=== PATIENT | female | born 1960 | race Caucasian/White ===

== ENCOUNTER 2019-10-24 11:30 | Outpatient (AMBR) | payer MEDICAID, SELFPAY ==
--- NOTE | 2019-10-17 16:07 | PTNOTE_ITS ---
PT OP Initial Eval Patient Information Visit Reasons: parkinsons disease Medical Diagnosis: Parkinson Disease Treatment Dx #1: Balance Deficits Treatment Dx #2: Abnormal Gait Start of Care: 10/17/19 Date of Onset: 1 year ago Initial Assessment Subjective Pt is a 59 y/o female with a medical history of Parkinson recently diagnosed and currently on medication. Since 1 year ago Pt has notice balance deficits, difficulty walking, and lack of coordination. Pt now has limitation with getting in/out of car, prolonged standing, recreational activities, and performing chores within the house. Pt has fallen once ~ 2 months ago where she loss her ba adelina Objective BUE AROM: all motions are WFL BUE MMTs: gorssly 3/5 BLE AROM: all motions are WFL BLE MMTs: grossly 3+/5 Modified CTSIB (condition 2- feet narrow): 5 sec with increase body sway (+) Dysdiadochokinesia Assessment Pt demonstrate decrease balance, coordination and difficulty with gait secondary to parkinson disease leading to decline function. Pt will benefit from physical therapy to increase mobility, strength, and work on balance Short Term and Subway Operator Goals 1) Increase BUE MMTs grossly to 4-/5 in 8 wks to be able to perform chores 2) Increase BLE MMTs grossly to 4-/5 in 8 wks to be able to ambulate more than 1 hr with AD 3) Increase modified CTSIB to 20 sec in 8 wks to prevent future falls 4) Teach proper gait apparatus repair mechanic using AD for safe ambulation in 8 wks 5) Indep with HEP Treatment Plan 1) Manual Therapy 2) Therapeutic Activities 3) Therapeutic Exercises 4) Gait Training 5) Balance Training Frequency and Duration 2 x wk for 8 wks Certification Dates: 10/17/19 to 01/15/20 Office Procedures PT Procedures PT Date of Service: 10/17/19 OP PT Eval Mod Complex 30 minutes: Yes
--- NOTE | 2019-10-22 14:16 | PT.ODAYNRPT ---
PT Outpatient Daily Note Date of Service: October 22, 2019 OP Daily Note Visit Reasons: parkinsons disease Outpatient Physical Therapy Treatment Date: 10/22/19 Subjective: Pt is doing okay. she tries not to do hard tasks at home. Objective: Please see flow chart for list of ther ex performed Assessment: cues to increase step length with backward exercises and all dynamic exercises in PB. Pt was fatigue at the end of PT session Plan: Continue with PT Length of Time (minutes) of Treatment: 30 Minutes Office Procedures PT Procedures PT Date of Service: 10/17/19 OP PT Eval Mod Complex 30 minutes: Yes PT Procedures PT Date of Service: 10/22/19 Therapeutic Exercise 30 minutes: Yes
--- NOTE | 2019-10-24 12:04 | PT.ODAYNRPT ---
PT Outpatient Daily Note Date of Service: October 24, 2019 OP Daily Note Visit Reasons: parkinsons disease Outpatient Physical Therapy Treatment Date: 10/24/19 Subjective: Pt mention that she was really tired after last treatment session. Pt slept for a few hrs. Objective: Please see flow chart for list of ther ex performed Assessment: tolerate exercises; slight increase fatigue with sci fit towards the end; Pt did sci-fit towards the end of PT session Plan: Continue with PT Length of Time (minutes) of Treatment: 30 Minutes Office Procedures PT Procedures PT Date of Service: 10/17/19 OP PT Eval Mod Complex 30 minutes: Yes PT Procedures PT Date of Service: 10/24/19 Therapeutic Exercise 30 minutes: Yes PT Procedures PT Date of Service: 10/22/19 Therapeutic Exercise 30 minutes: Yes
== END 2019-10-26 23:59 | disposition home or self-care (01) ==
PROVIDERS: Visit Provider Psychiatry & Neurology Neurology
DX: G20 Parkinson's disease (principal); R26.2 Difficulty in walking, not elsewhere classified
CPT/HCPCS: 97110; 97162

== ENCOUNTER → 2024-07-22 | Outpatient (CLI) | payer MEDICARE, MEDICAID, SELFPAY ==
--- NOTE | 2024-07-22 15:15 | XR_ITS ---
Examination: Breast ultrasound complete, bilateral Date and time of exam: July 22, 2024 1623 hours INDICATIONS: Limited mammogram secondary to Parkinson's disease Technique: Real-time grayscale ultrasonographic imaging bilateral breasts, including all 4 quadrants as well as nipple retroareolar and axillary regions. Findings: Sonographic images right and left breast demonstrated no cystic or solid masses Dilated ducts in the retroareolar regions bilaterally IMPRESSION: BI-RADS Category 2: Benign findings
== END | disposition home or self-care (01) ==
PROVIDERS: PCP Nurse Practitioner Family; Referring Provider Nurse Practitioner Family; Visit Provider Nurse Practitioner Family
DX: R92.0 Mammographic microcalcification found on diagnostic imaging of breast (principal)
CPT/HCPCS: 76641

== ENCOUNTER 2025-01-09 12:01 | Emergency (ER) | payer MEDICARE, MEDICAID, SELFPAY ==
[2025-01-09 12:01] VITALS: BMI 24.7
[2025-01-09 12:27] VITALS: BP 97/60; PULSE 79; RESP 18; TEMP 36.8; O2SAT 96
--- NOTE | 2025-01-09 12:30 | XR_ITS ---
Examination: Lumbar spine 3 views Technique one AP lateral coned lateral lower lumbar spine 3 views Date and time: January 09, 2025 1312 hours INDICATIONS: Patient fell today with injury to lower back, lower back pain. FINDINGS: Prominent osteopenia No acute lumbar fracture No spondylolisthesis IMPRESSION: No acute lumbar fracture
--- NOTE | 2025-01-09 12:30 | XR_ITS ---
Examination: Cervical spine 4 views TECHNIQUE: AP, lateral, swimmer's lateral, AP odontoid 4 views Date and time: January 09, 2025 1255 hours INDICATIONS: Patient fell today with into the neck, neck pain. FINDINGS: Prominent osteopenia No acute cervical fracture Advanced disc narrowing C6-C7 Intact odontoid IMPRESSION: No cervical fracture Visualization of C7 is limited
--- NOTE | 2025-01-09 12:30 | XR_ITS ---
Examination: Thoracic spine 3 views Technique one AP lateral coned lateral upper dorsal spine 3 views Date and time: January 09, 2025 1304 hours INDICATIONS: Patient fell today with injury to the back, upper back pain. FINDINGS: Prominent osteopenia No acute thoracic fracture Mild to moderate diffuse thoracic disc narrowing IMPRESSION: No acute thoracic fracture
--- NOTE | 2025-01-09 12:30 | XR_ITS ---
Examination: AP lateral chest 2 views TECHNIQUE: Portable upright AP lateral chest 2 views Date and time: January 09, 2025 1301 hours Comparison November 15, 2023 INDICATIONS: Patient fell today with injury to the chest, chest pain FINDINGS: Scarring at the left base again noted Normal heart size No pneumothorax Prominent osteopenia Ribs clavicles and thoracic vertebral bodies appear intact IMPRESSION: No pneumothorax or pulmonary contusion
--- NOTE | 2025-01-09 12:30 | XR_ITS ---
Examination:Right hip AP, lateral, AP pelvis 3 views Technique: Hip AP lateral, AP pelvis, 3 views Exam date and time:January 09, 2025 1251 hours INDICATIONS: Patient fell today with into the right hip, right hip pain. FINDINGS: Old healed right hip fracture No acute fracture Intramedullary goran satisfactory position Femoral shaft intact IMPRESSION: No acute hip or pelvic fracture.
--- NOTE | 2025-01-09 12:32 | EDNOTE_ITS ---
ED Fall Injury RME/HPI General Chief Complaint: Fall Stated Complaint: FALL AT HOME ATTEMPTING TO GET OFF TOILET, Time Seen by Provider: 01/09/25 12:26 Arrival date/time: 01/09/25 12:01 RME / HPI RME / HPI Narrative: 65-year-old female patient with significant history of Parkinson disease, was brought in by her sister for evaluation regarding fall. Patient is trying to get off the toilet yesterday and patient fell and landed on her buttock. Patient is complaining of right hip pain, low back pain and neck pain. Patient told me that she did not hit her head no LOC no nausea no vomiting. No medications taken prior to arrival. Related Data Home Medications ?Medication ?Instructions ?Recorded ?Confirmed FLUTICASONE/SALMETEROL (ADVAIR 1 puff inhalation BID # #60 02/26/15 250/50 DISKUS) Losartan Potassium * (COZAAR *) 50 mg PO QDAY ##30 10/12 Metformin Hcl 500 mg PO QDAY ##60 02/26/15 TIOTROPIUM BROMIDE (SPIRIVA 18 MCG) 1 puff inhalation QDAY ##30 02/26/15 ciprofloxacin HCl 500 mg tablet 500 mg PO BID #7 tabs 04/08/15 Previous Rx's ?Medication ?Instructions ?Recorded Hydrocodone/Acetaminophen * (NORCO 1 tab PO Q6H PRN PA IN #30 tabs 04/07/15 7.5/325 *) Hydrocodone/Acetaminophen * (NORCO 1 tab PO Q4H PRN PA IN #20 tabs 04/27/15 5/325 *) Allergies Allergy/AdvReac Type Severity Reaction Status Date / Time NKA* Allergy Uncoded 01/09/25 12:05 Review of Systems Review of Systems Narrative Review of Systems: Review of system reviewed and within normal limits except mentioned in HPI ED Exam Narrative Physical exam: VITAL SIGNS: Reviewed. GENERAL APPEARANCE: Alert and interactive, follows commands, no acute distress, HEAD AND FACE: Non-traumatic. ENT: PERRL, pink conjunctivitis, eyelid no trauma, Mucous membrane moist. NECK: Supple, posterior neck tenderness, no nuchal rigidity. CHEST: No tenderness, no crepitus, no paradoxical movement, no retractions. LUNGS: Clear, well ventilated, symmetric, no rales, no wheezing, no ronchi, no stridor, good breath sounds bilaterally. HEART: Regular rate, regular rhythm, no murmur, no gallops. ABDOMEN: Soft, positive bowel sounds, nondistended, no guarding, nontender, no rebound, no masses, RECTAL: Deferred. GENITAL: Deferred. NEUROLOGICAL: Gross motor function intact sensory function intact, Appropriate for age. MUSCULOSKELETAL: low back tenderness, full range of motion. EXTREMITIES: Right hip tenderness, with limitation range of motion. No deformity noted no swelling noted SKIN: Color pink, dry, no rash, no lacerations, no abrasions, no contusions. LYMPHATICS: Deferred. Course Quality Measures none Orders Category Date Time Status XR cervical spine 2-3V Stat Exams 01/09/25 12:30 Completed XR chest 2V Stat Exams 01/09/25 12:30 Completed XR hip RT w pelvis 2-3V Stat Exams 01/09/25 12:30 Completed XR lumbar spine 2-3V Stat Exams 01/09/25 12:30 Completed XR thoracic spine 3V Stat Exams 01/09/25 12:30 Completed HYDROcodone*/APAP 5/325 [[place] 5/325] Med 01/09/25 12:30 Discontinued 1 tab PO X1 ONE Vital Signs Vital signs: Vital Signs Temperature 98.2 F 01/09/25 12:27 Pulse Rate 79 01/09/25 12:27 Respiratory Rate 18 01/09/25 12:27 Blood Pressure 97/60 01/09/25 12:27 Pulse Oximetry (%) 96 01/09/25 12:27 Oxygen Delivery Method Room Air 01/09/25 12:27 Fall MDM Narrative MDM Narrative:: 65-year-old female patient with significant history of Parkinson disease, was brought in by her sister for evaluation regarding fall. Patient is trying to get off the toilet yesterday and patient fell and landed on her buttock. Patient is complaining of right hip pain, low back pain and neck pain. Patient told me that she did not hit her head no LOC no nausea no vomiting. No medications taken prior to arrival. X-ray of the cervical spine, x-ray of the hip, x-ray of the lumbar spine x-ray of the thoracic spine chest x-ray all came back unremarkable results discussed with the patient. Patient appears nontoxic and hemodynamically stable. Patient discharged home and instructed to follow-up with primary care provider in 24 to 48 hours. Instructed to return to the emergency department immediately if worsening of symptoms Patient data External records reviewed:: None Clinical information provided by:: patient Social determinants that could affect healthcare access:: none Patient has the following chronic illnesses:: Parkinson How is presenting disease/condition affected by chronic disease/condition?: exacerbated by Evaluation data The following diagnostics were reviewed and interpreted by me:: radiology exam(s) Lab and/or radiology exams considered but not ordered:: None Interpretation Summary: See results MDM Medications / Prescriptions Medications or Prescriptions considered but not ordered:: None Medication administrations:: Medication Administration History Discontinued Medications Hydrocodone Bitart/Acetaminophen (Hydrocodone/Apap 5/325 Tablet) 1 tab PO X1 ONE Stop: 01/09/25 12:31 Last Admin: 01/09/25 13:25 Dose: 1 tab Documented By: CAMI Harris Consultations Consultation(s) initiated? (list below): No Diagnosis Fall Differential Diagnosis: compression fracture and other (Neck pain, low back pain sp fall) Most likely diagnosis given after review of the tests above:: Status post fall, low back pain, neck pain Admission Indicated Admission indicated?: not indicated Admission Request Was there a request for admission?: No Disposition Plan Disposition Plan: Discharge Discharge Attestation Discharge Attestation: The patient and all family members were given an opportunity to ask questions and understood the discharge instructions. Discharge instructions specifically effects, indications for sooner follow up or return to the emergency department, and the expected course of current diagnosis. Patient condition: Stable Discharge Plan Plan Patient Disposition: HOME (Self Care) Discharge Disposition comment: stable Prescriptions/Referrals Prescriptions/Med Rec: No Action FLUTICASONE/SALMETEROL (ADVAIR 250/50 DISKUS) 1 DISK W/DEV DISK.W.DEV 1 puff Inhalation BID Qty: 60 Losartan Potassium * (COZAAR *) 50 MG tablet 50 mg PO QDAY Qty: 30 Metformin Hcl 500 MG tablet 500 mg PO QDAY Qty: 60 TIOTROPIUM BROMIDE (SPIRIVA 18 MCG) 5 CAP/INH CAP.W.DEV 1 puff Inhalation QDAY Qty: 30 Hydrocodone/Acetaminophen * (NORCO 7.5/325 *) 1 TAB tablet 1 tab PO Q6H PRN (Reason: PAIN) Qty: 30 0RF ciprofloxacin HCl 500 MG tablet 500 mg PO BID Qty: 7 Hydrocodone/Acetaminophen * (NORCO 5/325 *) 1 TAB tablet 1 tab PO Q4H PRN (Reason: PAIN) Qty: 20 0RF Referrals: No Primary/Family,Physician [Primary Care Provider] - In 1 week Problem List Clinical Impression: Fall, Neck pain, Back pain Patient/Caregiver Discharge Instructions Discharge Activity: activity as tolerated Education Materials: ED Neck Pain Additional Instructions: Thank you for the opportunity for serving you today. You are stable for discharged . You are advised to: Follow-up with your PCP in 1 to 2 days Return to ED for worsening of symptoms Increase oral fluids Take [id number] Tylenol or Motrin as needed for pain Print Language: Romanian Stand Alone Forms: [employer] Award Info., Patient Portal Info Letter PA/MEASURING MACHINE OPERATOR Supervising Physician CJ/ROYCE Supervising Physician: MD Austin
[2025-01-09] MEDS: HYDROcodone/APAP 5/325 TABLET 1 TAB PO (13:25)
== END 2025-01-09 16:57 | disposition home or self-care (01) ==
PROVIDERS: Emergency Provider Emergency Medicine
DX: M54.50 Low back pain, unspecified (principal); M54.2 Cervicalgia; G20.A1 Parkinson's disease without dyskinesia, without mention of fluctuations; M25.551 Pain in right hip; R07.9 Chest pain, unspecified
CPT/HCPCS: 71046; 72040; 72072; 72100; 73502; 99283; A9270

== ENCOUNTER 2025-01-10 19:07 | Inpatient (IN) | payer MEDICARE, MEDICAID, SELFPAY ==
[2025-01-10 19:10] VITALS: BP 132/72; PULSE 97; RESP 17; TEMP 36.7; O2SAT 92
[2025-01-10 19:27] VITALS: BP 116/62; PULSE 94; RESP 16; TEMP 38.3; O2SAT 97
--- NOTE | 2025-01-10 19:43 | XR_ITS ---
Examination: CT brain head without contrast. 2-D sagittal coronal reconstructions Date and time of exam:January 10, 20252018 hours INDICATIONS: Ground-level fall today with injury to the head, head pain CTDI: vol (mGy):48.8 DLP: (mGycm):924 Technique: Multiple CT axial sections of the brain have been obtained, 5 mm slice thickness. Contrast has not been administered. 2-D sagittal, coronal reconstructions have been obtained Low dose protocols were performed. One or more of the following dose reduction techniques were used; automated exposure control, adjustment of the mA and/or KV according to patient size, use of iterative reconstruction technique. Findings: Patient motion limits scan image quality The ventricles are not enlarged No gross hemorrhage No mass effect Impression: Patient motion limits image quality No gross hemorrhage mass effect or midline shift
--- NOTE | 2025-01-10 19:43 | XR_ITS ---
Examination: CT abdomen and pelvis without contrast. Coronal 3-D reconstructions. Sagittal 2-D reconstructions. Date and time of exam:January 10, 2025 2042 hours INDICATIONS: Ground-level fall today with injury to the abdomen, abdomen pain CTDI: vol (mGy): 12.5 DLP: (mGycm): 714 Technique: Axial images of the abdomen have been obtained, 3 mm slice thickness Intravenous contrast material has not been administered. Low dose protocols were performed. One or more of the following dose reduction techniques were used; automated exposure control, adjustment of the mA and/or KV according to patient size, use of iterative reconstruction technique. Findings: No liver or splenic or renal laceration Cholelithiasis Abdominal aorta is intact No free blood in the abdomen No pericecal inflammatory change Urinary bladder intact Anteverted uterus with a large fundus Prominent osteopenia Acute fractures second sacral segment, sagittal image 142, approximately 203 without significant displacement Acute fracture upper S3 vertebral body, sagittal image 144 No presacral hemorrhage Iliac bones and hips appear intact IMPRESSION: No abdominal parenchymal laceration Abdominal aorta intact, no free blood in the abdomen or pelvis Acute fractures second and third sacral segments without major offset
--- NOTE | 2025-01-10 19:43 | XR_ITS ---
Examination: CT lumbar spine, without contrast. 2-D sagittal reconstructions. 2-D coronal reconstructions. 3-D reconstructions. Date and time of exam: January 10, 20252021 hours INDICATIONS: Abdominal fall today with injury to lower back, lower back pain. CTDI: vol (mGy):30 DLP: (mGycm):2191 Technique: Multiple 1.25 mm axial sections of the lumbar spine have been obtained. 2-D sagittal and coronal reconstructions have been obtained. 3-D reconstructions have been obtained. Low dose protocols were performed. One or more of the following dose reduction techniques were used; automated exposure control, adjustment of the mA and/or KV according to patient size, use of iterative reconstruction technique. Findings: Satisfactory alignment lumbar vertebral bodies No lumbar fracture Lumbar pedicles and laminae and transverse processes appear intact IMPRESSION: No lumbar fracture Please see the CT pelvis report for description of fractures second and third sacral segments
--- NOTE | 2025-01-10 19:59 | EDNOTE_ITS ---
ED Fall Injury RME/HPI General Chief Complaint: Fall Stated Complaint: FALL Time Seen by Provider: 01/10/25 19:48 Arrival date/time: 01/10/25 19:07 RME / HPI RME / HPI Narrative: The patient is a 64-year-old female with significant past medical history of parkinsonism presented to ED by EMS with chief complaint of ground-level fall. The patient was here for fall 1 day back, but again had second episode of fall this afternoon. The caregiver initially helped her to reach to restroom, and after sometimes, her caregiver found her on ground. The patient reported that she hit her head, and her butt on the ground, but did not lose her consciousness. She reported pain over her lumbar region, and over left pelvis region. She denied any headache, lightheadedness, dizziness, sore throat, chest pain, SOB, abdominal pain, any changes in bowel or bladder habit or leg swelling. She denied any nausea or vomiting, fever or chills. Related Data Home Medications ?Medication ?Instructions ?Recorded ?Confirmed FLUTICASONE/SALMETEROL (ADVAIR 1 puff inhalation BID # #60 02/26/15 250/50 DISKUS) Losartan Potassium * (COZAAR *) 50 mg PO QDAY ##30 10/12 Metformin Hcl 500 mg PO QDAY ##60 15 TIOTROPIUM BROMIDE (SPIRIVA 18 MCG) 1 puff inhalation QDAY ##30 02/26/15 ciprofloxacin HCl 500 mg tablet 500 mg PO BID #7 tabs 04/08/15 Previous Rx's ?Medication ?Instructions ?Recorded Hydrocodone/Acetaminophen * (NORCO 1 tab PO Q6H PRN PA IN #30 tabs 04/07/15 7.5/325 *) Hydrocodone/Acetaminophen * (NORCO 1 tab PO Q4H PRN PA IN #20 tabs 04/27/15 5/325 *) Allergies Allergy/AdvReac Type Severity Reaction Status Date / Time No Known Allergies Allergy Unverified 01/10/25 19:49 Review of Systems Review of Systems Systems Reviewed: All systems reviewed, normal except as documented ED Exam Narrative Physical exam: General: Elderly female, cooperative, no acute distress, Alert and Oriented x 3- to person place and date of including year HEENT: Moderately dry mucous membranes, oropharynx clear Neck: Supple, No masses, No JVD CVS: S1S2 Regular rate and rhythm, No murmurs, rubs or gallops Lungs: Clear to auscultation with no accessory use, no wheeze no rhonchi Abd: Soft, NT/ND, +BS, no organomegaly, tenderness over L3-L4 level and left pelvis region Ext: No edema, warm and well perfused Skin: No rash Psych: Appropriate mood and affect Course Quality Measures none Orders Category Date Time Status Apply Trapeze to Bed NOW Care 01/10/25 23:26 Active Bladder Scan Q6H Care 01/10/25 23:23 Active Director Of Retail Operations STAT Care 01/11/25 00:05 Active Continuous Pulse Oximetry STAT Care 01/11/25 00:05 Active EKG (ED ONLY) *Do not use* NOW Care 01/11/25 00:05 Active In and Out Catheter X1 Care 01/10/25 21:29 Active Insert IV NOW Care 01/11/25 00:05 Active Orthostatic Vitals NOW Care 01/10/25 20:26 Active Strict Intake and Output Routine Care 01/11/25 00:05 Ordered Consult to Orthopedic Stat Cons 01/10/25 23:31 Ordered Referral Physical Therapy Stat Cons 01/10/25 23:26 Active Diet Regular Diet 01/10/[address] abdomen pelvis wo con Stat Exams 01/10/25 19:[address] cervical spine wo con Stat Exams 01/10/25 20:[address] head/brain wo con Stat Exams 01/10/25 19:[address] lumbar spine wo con Stat Exams 01/10/25 19:43 Completed CXRP [XR chest 1V portable] Stat Exams 01/10/25 20:29 Completed EKG (ED Only) Stat Exams 01/11/25 00:05 Ordered US gall bladder Stat Exams 01/11/25 00:00 Taken Blood Culture (Lab) Stat Lab 01/11/25 00:24 Received CBC Stat Lab 01/10/25 00:09 Completed CK [Creatine Kinase] Stat Lab 01/10/25 00:09 Completed CMP [Comprehensive Metabolic Panel] Stat Lab 01/10/25 00:09 Completed LDH (Lactate Dehydrogenase) Stat Lab 01/11/25 00:20 Completed Lactate (Lactic Acid) Stat Lab 01/11/25 00:20 Completed Magnesium Stat Lab 01/10/25 00:09 Completed Partial Thromboplastin Time Stat Lab 01/11/25 00:20 Completed Phosphorous Stat Lab 01/10/25 00:09 Completed Procalcitonin Stat Lab 01/11/25 00:20 Completed Prothrombin Time with INR Stat Lab 01/11/25 00:20 Completed Troponin I Stat Lab 01/11/25 00:20 Completed UA [Urinalysis] Stat Lab 01/10/25 21:30 Completed Urine Culture Stat Lab 01/11/25 00:05 Ordered HYDROcodone*/APAP 5/325 [Lockhart 5/325] Med 01/10/25 23:30 Discontinued 1 tab PO Q6H HYDROcodone*/APAP 5/325 [Lockhart 5/325] Med 01/11/25 01:50 Active 1 tab PO Q6HR HYDROcodone*/APAP 5/325 [[place] 5/325] Med 01/10/25 19:47 Discontinued 1 tab PO X1 ONE Morphine Inj Med 01/10/25 23:43 Discontinued 1 mg IVP X1 ONE Naloxegol Oxalate [Movantik] Med 01/11/25 09:00 Active 12.5 mg PO QDAY Sodium Chloride 0.9% 500 ml [Ns] 500 ml Med 01/10/25 19:56 Discontinued IV 999 mls/hr Sodium Chloride 0.9% 500 ml [Ns] 500 ml Med 01/11/25 00:08 Discontinued IV 999 mls/hr Sodium Chloride 0.9% 500 ml [Ns] 500 ml Med 01/11/25 01:43 Discontinued IV 999 mls/hr cefTRIAXone/D5w 1gm IV premix [Rocephin/D5w 1gm IV Med 01/10/25 23:27 Discontinued premix] 1 gm in 50 ml IV X1 Oxygen Delivery NOW RT 01/11/25 00:05 Active Vital Signs Vital signs: Vital Signs Temperature 98.1 F 01/10/25 19:10 Pulse Rate 97 01/10/25 19:10 Respiratory Rate 17 01/10/25 19:10 Blood Pressure 132/72 H 01/10/25 19:10 Pulse Oximetry (%) 92 L 01/10/25 19:10 Oxygen Delivery Method Room Air 01/10/25 19:10 Fall MDM Narrative MDM Narrative:: The patient is a 64-year-old female with significant past medical history of parkinsonism presented to ED by EMS with chief complaint of ground-level fall. The patient was here for fall 1 day back, but again had second episode of fall this afternoon. The caregiver initially helped her to reach to restroom, and after sometimes, her caregiver found her on ground. The patient reported that she hit her head, and her butt on the ground, but did not lose her consciousness. She reported pain over her lumbar region, and over left pelvis region. She denied any headache, lightheadedness, dizziness, sore throat, chest pain, SOB, abdominal pain, any changes in bowel or bladder habit or leg swelling. She denied any nausea or vomiting, fever or chills. The patient's initial vitals were BP 132/72, pulse 97, temperature 98.1, saturating 92% on room air; but temperature increased to 101.0 later. Her CBC was WNL. Coag panel WNL, Lactate 1.4, LDH 248, procal 0.09, UA revealed turbid urine, nitrite and leukocyte esterase positive, WBC 18, bacteria 3+, Head CT negative for acute hemorrhage, midline shift or mass affect, Lumbar and cervical spine CT negative for acute fracture, abdomen/pelvis CT revealed acute fractures second and third sacral segments without major offset and CXR negative for pneumonia. Gall bladder US pending final report but negative for CBD dilatation in prelim read. The patient was called septic alert and given 1500cc bolus IV NS , Ceftriaxone 1g IV x1, Morphine 1mg IV x1 and [place] 5mg. Patient data External records reviewed:: [facility] previous records Clinical information provided by:: patient and family Social determinants that could affect healthcare access:: none Patient has the following chronic illnesses:: See above How is presenting disease/condition affected by chronic disease/condition?: caused by Evaluation data The following diagnostics were reviewed and interpreted by me:: lab results, radiology exam(s) and EKG tracing(s) Lab and/or radiology exams considered but not ordered:: None Interpretation Summary: See above Medications / Prescriptions Medications or Prescriptions considered but not ordered:: None Medication administrations:: Medication Administration History Hydrocodone Bitart/Acetaminophen (Hydrocodone/Apap 5/325 Tablet) 1 tab PO Q6HR [facility] Stop: 01/15/25 23:29 Naloxegol (Naloxegol Oxalate 25 Mg Tablet (Non-Formulary)) 12.5 mg PO QDAY CANDACE Stop: 02/10/25 08:59 Discontinued Medications Hydrocodone Bitart/Acetaminophen (Hydrocodone/Apap 5/325 Tablet) 1 tab PO X1 ONE Stop: 01/10/25 19:48 Last Admin: 01/10/25 20:42 Dose: 1 tab Documented By: CG Hydrocodone Bitart/Acetaminophen (Hydrocodone/Apap 5/325 Tablet) 1 tab PO Q6H C[facility]ACE Stop: 01/15/25 23:29 Sodium Chloride (Ns) 500 mls @ 999 mls/hr IV .Q31M ONE Stop: 01/10/25 20:26 Last Admin: 01/10/25 20:42 Dose: 999 mls/hr Documented By: CG Ceftriaxone Sodium/Dextrose (Rocephin/D5w 1gm Iv Premix) 1 gm in 50 mls @ 100 mls/hr IV X1 ONE Stop: 01/10/25 23:56 Last Admin: 01/11/25 01:51 Dose: 100 mls/hr Documented By: BEBO Sodium Chloride (Ns) 500 mls @ 999 mls/hr IV .Q31M ONE Stop: 01/11/25 00:38 Last Admin: 01/11/25 01:58 Dose: 999 mls/hr Documented By: BEBO Sodium Chloride (Ns) 500 mls @ 999 mls/hr IV .Q31M ONE Stop: 01/11/25 02:13 Morphine Sulfate (Morphine Sulf Inj 10 Mg/Ml Vial) 1 mg IVP X1 ONE Stop: 01/10/25 23:44 Last Admin: 01/11/25 00:01 Dose: 1 mg Documented By: CG See above Consultations Consultation(s) initiated? (list below): Yes Consultation #1 (Physician, Specialty, Details): Ortho Dr. Lopez. Consultation #2 (Physician, Specialty, Details): Hospitalist team Dr. Lucia Diagnosis Fall Differential Diagnosis: syncope, compression fracture, concussion without loss of consciousness and other (Ground-level mechanical fall) Most likely diagnosis given after review of the tests above:: Ground-level mechanical fall Admission Indicated Admission indicated?: indicated Admission Request Was there a request for admission?: Yes Admission Attestation Admission request attestation: Discussed case with Dr. Lucia from Hospitalist service regarding admission. Discussed patients ED course, exam findings, labs, and radiology results. The Hospitalist agrees to accept the patient for admission. Disposition Plan Disposition Plan: Admit Discharge Plan Plan Patient Disposition: Admit Acute Care w/in Hospital Prescriptions/Referrals Prescriptions/Med Rec: No Action FLUTICASONE/SALMETEROL (ADVAIR 250/50 DISKUS) 1 DISK W/DEV DISK.W.DEV 1 puff Inhalation BID Qty: 60 Losartan Potassium * (COZAAR *) 50 MG tablet 50 mg PO QDAY Qty: 30 Metformin Hcl 500 MG tablet 500 mg PO QDAY Qty: 60 TIOTROPIUM BROMIDE (SPIRIVA 18 MCG) 5 CAP/INH CAP.W.DEV 1 puff Inhalation QDAY Qty: 30 Hydrocodone/Acetaminophen * (NORCO 7.5/325 *) 1 TAB tablet 1 tab PO Q6H PRN (Reason: PAIN) Qty: 30 0RF ciprofloxacin HCl 500 MG tablet 500 mg PO BID Qty: 7 Hydrocodone/Acetaminophen * (NORCO 5/325 *) 1 TAB tablet 1 tab PO Q4H PRN (Reason: PAIN) Qty: 20 0RF Referrals: Doris Garrido FNP [Primary Care Provider] - In 1 week Problem List Clinical Impression: UTI (urinary tract infection), Sacral fracture, closed, Sepsis Patient/Caregiver Discharge Instructions Print Language: [place] Stand Alone Forms: Lotus Award Info., Patient Portal Info Letter MD Attestation MD Attestation I, Dr. Greenberg, have reviewed the history, exam, and assessment of the patient. I have evaluated the patient independently and agree with the plan of care documented by the resident Dr. Adame. All diagnostic studies were reviewed and discussed. I confirm the diagnosis as documented by the resident. I was present during the Medical Decision Making for this patient. The patient?s plan of care was created between myself and the resident and consistent with our discussion of the patient?s case.
--- NOTE | 2025-01-10 20:01 | XR_ITS ---
Examination: CT cervical spine without contrast 2-D sagittal reconstructions 2-D coronal reconstructions 3-D reconstructions. Exam date and time:January 10, 2025 2019 hours INDICATIONS: Ground-level fall today with injury to the neck, neck pain CTDI:vol (mGy) 7.43 DLP: (mGycm) 157 Technique: Multiple 2 mm axial sections of the cervical spine have been obtained. The coronal and sagittal reconstructions have been obtained. 3-D reconstructions have been obtained. Low dose protocols were performed. One or more of the following dose reduction techniques were used; automated exposure control, adjustment of the mA and/or KV according to patient size, use of iterative reconstruction technique. Findings: Axial sections demonstrate intact base of the skull. C1 exhibit satisfactory relationship to the odontoid. No acute cervical vertebral body fracture seen. Alignment posterior spinous processes satisfactory. Impression: No acute cervical fracture.
[2025-01-10 20:21] LABS: Basophils % (Auto) 0 % (0-2.5); Eosinophils # (Auto) 0.1 Thou/mm3 (0.0-0.5); Eosinophils % (Auto) 1 % (0-10); Hematocrit 39.2 % (36.0-46.0); Hemoglobin 13.6 g/dL (12.0-16.0); Immature Granulocytes % (Auto) 1 % (0-0); Immature Granulocytes Auto 0.04 Thou/mm3 (0.00-0.00); Lymphocytes % (Auto) 12 % (10-50); Mean Corpuscular HGB Conc 34.7 g/dl (31.0-37.0); Mean Corpuscular Volume 84 fL (80-100); Monocytes # (Auto) 0.7 Thou/mm3 (0.0-0.8); Monocytes % (Auto) 8 % (0-12); Neutrophils % (Auto) 79 % (37-80); Nucleated Red Blood Cell % 0 /100 WBC (0); Platelet Count 148 Thou/mm3 (140-440); RDW Standard Deviation 39.2 fL (36.4-46.3); Red Blood Count 4.69 Miln/mm3 (4.00-5.20); White Blood Count 8.8 Thou/mm3 (3.6-11.0)
--- NOTE | 2025-01-10 20:29 | XR_ITS ---
Examination: AP chest single view TECHNIQUE: AP portable semiupright chest single view Date and time: January 10, 20252057 hours Comparison January 09, 2025 INDICATIONS: Vomiting today. FINDINGS: Normal heart size. No aspiration pneumonia or pulmonary edema Prominent osteopenia IMPRESSION: No aspiration pneumonia
[2025-01-10] MEDS: SODIUM CHLORIDE 0.9% 500 ML 500 ML 999 ML IV (20:42)
[2025-01-10] MEDS: HYDROcodone/APAP 5/325 TABLET 1 TAB PO (20:42)
[2025-01-10 21:04] LABS: Alanine Aminotransferase < 7 U/L (10-49); Albumin, Serum 4.3 gm/dL (3.4-4.8); Albumin/Globulin Ratio 1.8 (1.2-2.2); Alkaline Phosphatase 83 U/L (46-116); Anion Gap 10 (7-16); Aspartate Amino Transferase 17 U/L (0-34); BUN/Creatinine Ratio 21 Ratio (12-20); Bilirubin,Total 3.7 mg/dL (0.3-1.2); Blood Urea Nitrogen 15 mg/dL (9-23); Calcium 8.9 mg/dL (8.3-10.6); Calcium (Corrected) 8.9 mg/dL (8.5-10.1); Carbon Dioxide 24.6 mMol/L (20.0-31.0); Chloride 105 mMol/L (98-107); Creatinine (Component) 0.7 mg/dL (0.6-1.3); Globulin 2.4 gm/dL (2.3-3.5); Glucose 126 mg/dL (74-106); Magnesium 1.8 mg/dL (1.6-2.6); Osmolality,Calculated 282 (275-295); Phosphorous 2.9 mg/dL (2.4-5.1); Potassium 3.9 mMol/L (3.4-5.1); Sodium 140 mMol/L (136-145); Total Protein 6.7 gm/dL (5.7-8.2); eGFR > 60 See Note
[2025-01-10 21:15] VITALS: BMI 20.1
[2025-01-10 21:15] LABS: Creatine Kinase 77 U/L (34-171)
[2025-01-10 21:26] VITALS: BP 142/74; PULSE 88; RESP 22; TEMP 37.4; O2SAT 92
[2025-01-10 21:55] LABS: Collection Type, Urine Clean Catch
[2025-01-10 22:14] LABS: Bilirubin,Urine Negative (Negative); Blood,Urine Negative (Negative); Clarity,Urine Turbid (Clear/Hazy); Color,Urine Yellow (Lt Yel-Yel); Glucose, Urine Negative (Negative); Ketones,Urine Negative (Negative); Leukocyte Esterase,Urine Positive (Negative); Nitrite,Urine Positive (Negative); Protein,Urine Negative (Neg - Trace); Specific Gravity,Urine 1.017 (1.001-1.035); Urobilinogen,Urine Negative mg/dL (0.0-1.0)
[2025-01-10 22:17] LABS: Bacteria,Urine 3+
[2025-01-10 22:18] LABS: Squamous Epithelial Cell,Urine 8 /hpf (0-5); WBC,Urine 18 /hpf (0-5)
[2025-01-10 22:19] LABS: RBC,Urine 3 /hpf (0-3)
[2025-01-10 22:38] VITALS: BP 118/70; BP 144/94; PULSE 85; PULSE 95
--- NOTE | 2025-01-11 | XR_ITS ---
Examination: Abdomen sonogram, Limited Date and time of exam: January 11, 2025 0025 hours INDICATIONS: Elevated bilirubin laboratory examination today Technique: Real-time shelton scale transabdominal sonographic images of the upper abdomen obtained. Findings: Multiple gallstones Gallbladder wall 0.2 cm Common bile ducts are 0.3 cm Pancreas obscured by bowel gas Liver 16.6 cm fatty infiltration lobular contour and no focal liver lesions Normal hepatopedal portal venous flow Patent IVC IMPRESSION: Cholelithiasis, negative for cholecystitis Mild hepatomegaly, suspected primary hepatocellular disease
[2025-01-11] MEDS: MORPHINE SULF INJ 10 MG/ML VIAL IVP (00:01)
[2025-01-11 00:04] VITALS: BP 119/67; PULSE 95; RESP 19; TEMP 36.9; O2SAT 95
[2025-01-11 00:53] LABS: Lactate (Lactic Acid) 1.4 mMol/L (0.4-2.0)
[2025-01-11 01:24] LABS: LDH (Lactate Dehydrogenase) 248 U/L (120-246); Procalcitonin 0.09 ng/ml (0.0-0.49); Troponin I < 0.002 ng/mL (0.0-0.045)
[2025-01-11 01:32] LABS: Partial Thromboplastin Time 23.6 Seconds (22.0-36.0); Prothrombin Time 11.3 Seconds (9.0-12.2)
--- NOTE | 2025-01-11 01:50 | PC.NURSE ---
Pt resting in bed with no s/s of pain or acute distress
[2025-01-11] MEDS: cefTRIAXone/D5w 1gm IV premix 1 GM/50 ML BAG IV ×2 (01:51→20:59)
[2025-01-11] MEDS: SODIUM CHLORIDE 0.9% 500 ML 500 ML 999 ML IV (01:58)
--- NOTE | 2025-01-11 02:07 | PRELIM_ITS ---
Gallbladder ultrasound. January 11, 2025 at 0025 hours Clinical history: Elevated bilirubin. Denies pain to abdomen. No prior study is available for comparison. Findings: The evaluation is limited due to bowel gas. The liver measures 16.6 cm and demonstrates increased echogenicity with a lobular contour. No intrahepatic biliary ductal dilatation. The main portal vein is patent and demonstrates hepatopetal flow. The hepatic veins are patent. Multiple calculi are noted within the gallbladder, the largest measuring 1.5 cm, without evidence of gallbladder wall thickening or pericholecystic fluid. The common duct is normal in caliber at 3.3 mm. The pancreas is obscured by bowel gas. The visualized inferior vena cava is patent. Impression: Cholelithiasis. No gallbladder wall thickening, pericholecystic fluid or biliary dilatation. Fatty liver. Report Electronically Signed By: Stefano Roper 01/11/2025 2:07:09 AM [EST]
--- NOTE | 2025-01-11 03:48 | ESHP_ITS ---
Documentation for date of: 01/11/25 HPI History of Present Illness History of present illness: 64-year-old female patient with significant medical history for parkinsonism and hypertension BIBA with chief complaint of ground-level fall. Patient was found to have x2 fall yesterday and this afternoon. Patient was found by caregiver in bathroom on the floor. Patient denied fever, chills, NVD, headache, dizziness, chest pain/pressure, SOB, abdominal pain or other associated symptoms. Initial vitals were BP 132/72, pulse 97, temperature 98.1, saturating 92% on room air; but temperature increased to 101F later. Labs were significant for T bili 3.7, Lactate 1.4, LDH 248, procal 0.09, UA revealed turbid urine, nitrite and leukocyte esterase positive, WBC 18, bacteria 3+, Head CT negative for acute hemorrhage, midline shift or mass affect, Lumbar and cervical spine CT negative for acute fracture, abdomen/pelvis CT revealed acute fractures second and third sacral segments without major offset and CXR was negative for pneumonia. Preliminary GB US negative for CBD dilation but did indicate cholelethiasis. The patient was called septic alert and given 1500cc bolus IV NS, Ceftriaxone 1g IV x1, Morphine 1mg IV x1 and [place] 5mg. Orthopedist Dr. Lopez was consulted who recommended admission for pain management and SNF placement, no surgery planned. Medical Hx: Parkinson, hypertension Medications (need reconciliation): losartan, norco, metformin, tiotropium Allergies: NKDA Code Status: Full Code Review of Systems Review of Systems Systems Reviewed: All systems reviewed, normal except as documented Exam Vital Signs Temp Pulse Resp BP Pulse Ox O2 Del Method 98.5 F 95 19 119/67 95 Room Air 01/11/25 00:04 01/11/25 00:04 01/11/25 00:04 01/11/25 00:04 01/11/25 00:04 01/11/25 00:04 Narrative Exam Constitutional: well-developed, well-nourished, in mild distress, having difficulty speaking HEENT: NCAT, EOMI, reactive round pupils b/l, patent nares b/l, moist mucous membranes Lung: CTAB, no wheezing, no rhonchi Heart: Regular S1S2, no murmurs, gallops, or rubs Abdomen: Soft, non-distended, non-tender, bowel sounds present throughout Extremities: No cyanosis, clubbing, or edema, LE pulses present b/l MSK: Spinal and paraspinal tenderness of L3-L4 Neurologic: No focal sensory or motor deficits noted, AOx3, appropriate affect Skin: Warm, dry, no lesions or rashes noted Results: Labs 01/12/25 04:59 01/11/25 10:06 Labs: Short CBC 01/10/25 Range/Units 00:09 WBC 8.8 (3.6-11.0) Thou/mm3 Hgb 13.6 (12.0-16.0) g/dL Hct 39.2 (36.0-46.0) % Plt Count 148 (140-440) Thou/mm3 BMP 01/10/25 00:09 Sodium 140 Potassium 3.9 Chloride 105 Carbon Dioxide 24.6 BUN 15 Creatinine 0.7 Glucose 126 H Calcium 8.9 Cardiac Enzymes 01/10/25 01/11/25 Range/Units 00:09 00:20 Total Creatine Kinase 77 (34-171) U/L Troponin I < 0.002 (0.0-0.045) ng/mL Liver Function 01/10/25 Range/Units 00:09 Total Bilirubin 3.7 H (0.3-1.2) mg/dL AST 17 (0-34) U/L ALT < 7 L (10-49) U/L Alkaline Phosphatase 83 (46-116) U/L Albumin 4.3 (3.4-4.8) gm/dL Urine 01/10/25 Range/Units 21:30 Urine Color Yellow (Lt Yel-Yel) Urine Clarity Turbid A (Clear/Hazy) Urine pH 6.0 (5.0-7.0) Ur Specific Brogan 1.017 (1.001-1.035) Urine Protein Negative (Neg - Trace) Urine Glucose (UA) Negative (Negative) Quality Measures Quality Measures none Medications Home Medications and Allergies Home Medications ?Medication ?Instructions ?Recorded ?Confirmed ?Type FLUTICASONE/SALMETEROL (ADVAIR 1 puff inhalation BID # #60 02/26/15 History 250/50 DISKUS) Losartan Potassium * (COZAAR *) 50 mg PO QDAY ##30 10/12 History Metformin Hcl 500 mg PO QDAY ##60 02/26/15 History TIOTROPIUM BROMIDE (SPIRIVA 18 MCG) 1 puff inhalation QDAY ##30 02/26/15 History ciprofloxacin HCl 500 mg tablet 500 mg PO BID #7 tabs 04/08/15 History Allergies Allergy/AdvReac Type Severity Reaction Status Date / Time No Known Allergies Allergy Unverified 01/10/25 19:49 Visit Medications Acetaminophen (Acetaminophen 325 Mg Tablet) 650 mg PO Q6H PRN PRN Reason: Fever >101.5 Stop: 02/10/25 03:29 Heparin Sodium (Porcine) (Heparin Sod Inj 5000 Unit/Ml Vial) 5,000 unit SC Q12HR CANDACE Stop: 01/25/25 08:59 Ceftriaxone Sodium 1 gm/ (Sodium Chloride) 50 mls @ 100 mls/hr IV QDAY@2100 [facility] Stop: 01/18/25 20:59 Morphine Sulfate (Morphine Sulf Inj 10 Mg/Ml Vial) 2 mg IVP X1 ONE Stop: 01/11/25 04:01 Naloxegol (Naloxegol Oxalate 25 Mg Tablet (Non-Formulary)) 12.5 mg PO QDAY CANDACE Stop: 02/10/25 08:59 Ondansetron HCl (Ondansetron Inj 2 Mg/Ml Inj 2 Ml) 4 mg IV Q6H PRN; Protocol PRN Reason: NAUSEA OR VOMITING Stop: 02/10/25 03:29 Pantoprazole Sodium (Pantoprazole 40 Mg Tablet) 40 mg PO QDAY [facility] Stop: 02/10/25 08:59 Discontinued Medications Hydrocodone Bitart/Acetaminophen (Hydrocodone/Apap 5/325 Tablet) 1 tab PO X1 ONE Stop: 01/10/25 19:48 Last Admin: 01/10/25 20:42 Dose: 1 tab Hydrocodone Bitart/Acetaminophen (Hydrocodone/Apap 5/325 Tablet) 1 tab PO Q6H [facility] Stop: 01/15/25 23:29 Hydrocodone Bitart/Acetaminophen (Hydrocodone/Apap 5/325 Tablet) 1 tab PO Q6HR [facility] Stop: 01/11/25 03:30 Last Admin: 01/11/25 01:50 Dose: Not Given Sodium Chloride (Ns) 500 mls @ 999 mls/hr IV .Q31M ONE Stop: 01/10/25 20:26 Last Admin: 01/10/25 20:42 Dose: 999 mls/hr Ceftriaxone Sodium/Dextrose (Rocephin/D5w 1gm Iv Premix) 1 gm in 50 mls @ 100 mls/hr IV X1 ONE Stop: 01/10/25 23:56 Last Admin: 01/11/25 01:51 Dose: 100 mls/hr Sodium Chloride (Ns) 500 mls @ 999 mls/hr IV .Q31M ONE Stop: 01/11/25 00:38 Last Admin: 01/11/25 01:58 Dose: 999 mls/hr Sodium Chloride (Ns) 500 mls @ 999 mls/hr IV .Q31M ONE Stop: 01/11/25 02:13 Morphine Sulfate (Morphine Sulf Inj 10 Mg/Ml Vial) 1 mg IVP X1 ONE Stop: 01/10/25 23:44 Last Admin: 01/11/25 00:01 Dose: 1 mg Assessment & Plan Plan 64-year-old female patient with significant medical history for parkinsonism and hypertension BIBA with chief complaint of ground-level fall. Patient was found to have x2 fall yesterday and this afternoon. Patient was found by caregiver in bathroom on the floor. CT negative for acute fracture, abdomen/pelvis CT revealed acute fractures second and third sacral segments without major offset and CXR was negative for pneumonia. Orthopedist Dr. Lopez was consulted who recommended admission for pain management and SNF placement, no surgery planned. #Ground-level fall Patient with x2 falls in last couple days Head CT, lumbar and cervical imaging negative for fracture Abdomn/pelvis CT showed S2-S3 acute fracture Plan: -Orthopedist Dr. Lopez consulted, recommendations are greatly appreciated -IV morphine PRN for pain management -Physical therapy -Patient will most likely need SNF placement #Elevated T Bili On admission patient with T bili 3.7 with temperature of 101F, liver enzymes and WBC WNL Patient denied abdominal pain GB US indicate normal cholelithiasis, negative for cholecystitis, normal CBD Abdomen/Pelvis CT showed cholilithiasis Plan: -Consider repeating T bili #UTI Plan: -Urine culture pending -IV Rocephin -Tylenol for fever #Parkinson disease Plan: -Carbidopa/Levodopa home med started -Rivastagmine home med started -Restart rest of home med after reconciliation #History of hypertension Plan: -Current BP WNL -Consider restarting home med Losartan Health Maintenance Dispo: Patient admitted for acute sacral fracture, orthopedist consulted Diet: Regular DVT/PPx: Heparin GI ppx: Protonix Lines: PIV Code Status: Full Code This patient care was discussed with my attending Dr. Reinaldo Lucia MD PGY-2 Disclaimer: Minor errors in filter tender may be present since this note was dictated by speech recognition software. Attending Provider Attestation/Addendum I have examined the patient, reviewed labs and imaging findings, discussed the case with the resident(s), and reviewed entered orders. I agree with the plan of care as outlined in this note, with these additional summaries/recommendations: 64-year-old female with past medical history of Parkinson's disease, hypertension presents to the ED after ground-level fall x 2. She was found to have sacral fracture of 2nd and 3rd segments without major offset. Discussed case with orthopedist who recommended admission for management of intractable pain requiring IV pain medications. She will likely require placement at the time of discharge as family reports issue with recurrent falls. Cortes Najera MD
[2025-01-11] MEDS: MORPHINE SULF INJ 10 MG/ML VIAL 2 MG IVP (05:16)
--- NOTE | 2025-01-11 06:21 | PC.NURSE ---
No skin break down noted upon assessment
[2025-01-11 07:26] LABS: Basophils % (Auto) 1 % (0-2.5); Eosinophils # (Auto) 0.1 Thou/mm3 (0.0-0.5); Eosinophils % (Auto) 2 % (0-10); Hematocrit 38.9 % (36.0-46.0); Hemoglobin 13.3 g/dL (12.0-16.0); Immature Granulocytes % (Auto) 0 % (0-0); Immature Granulocytes Auto 0.02 Thou/mm3 (0.00-0.00); Lymphocytes # (Auto) 1.3 Thou/mm3 (1.0-4.8); Lymphocytes % (Auto) 24 % (10-50); Mean Corpuscular HGB Conc 34.2 g/dl (31.0-37.0); Mean Corpuscular Hemoglobin 29.7 pg (25.0-35.0); Mean Corpuscular Volume 87 fL (80-100); Monocytes # (Auto) 0.6 Thou/mm3 (0.0-0.8); Monocytes % (Auto) 10 % (0-12); Neutrophils # (Auto) 3.4 Thou/mm3 (1.8-7.7); Neutrophils % (Auto) 63 % (37-80); Nucleated Red Blood Cell % 0 /100 WBC (0); Platelet Count 149 Thou/mm3 (140-440); RDW Standard Deviation 40.7 fL (36.4-46.3); Red Blood Count 4.48 Miln/mm3 (4.00-5.20); White Blood Count 5.4 Thou/mm3 (3.6-11.0)
[2025-01-11 07:54] LABS: Alanine Aminotransferase 18 U/L (10-49); Albumin, Serum 3.9 gm/dL (3.4-4.8); Albumin/Globulin Ratio 1.7 (1.2-2.2); Alkaline Phosphatase 131 U/L (46-116); Anion Gap 10 (7-16); Aspartate Amino Transferase 57 U/L (0-34); BUN/Creatinine Ratio 20 Ratio (12-20); Bilirubin,Total 2.8 mg/dL (0.3-1.2); Blood Urea Nitrogen 10 mg/dL (9-23); Calcium 8.3 mg/dL (8.3-10.6); Calcium (Corrected) 8.4 mg/dL (8.5-10.1); Carbon Dioxide 23.8 mMol/L (20.0-31.0); Chloride 109 mMol/L (98-107); Creatinine (Component) 0.5 mg/dL (0.6-1.3); Estimated Creatinine Clearance 101.2 mL/min (>60); Globulin 2.3 gm/dL (2.3-3.5); Glucose 104 mg/dL (74-106); Magnesium 1.9 mg/dL (1.6-2.6); Osmolality,Calculated 283 (275-295); Potassium 3.5 mMol/L (3.4-5.1); Sodium 143 mMol/L (136-145); Total Protein 6.2 gm/dL (5.7-8.2); eGFR > 60 See Note
[2025-01-11 08:18] VITALS: BP 128/80; PULSE 89; RESP 18; TEMP 37.1; O2SAT 95
[2025-01-11] MEDS: CARBIDOPA/LEVODOPA CR 50/200 TABCR 1 TAB PO ×2 (08:58→20:59)
[2025-01-11] MEDS: SENNA TABLET 1 TAB PO (08:58)
[2025-01-11] MEDS: RIVASTIGMINE 4.6 MG/24 HR TOP (08:58)
[2025-01-11] MEDS: PANTOPRAZOLE 40 MG TABLET PO (08:59)
[2025-01-11] MEDS: HEPARIN SOD INJ 5000 UNIT/ML VIAL SC ×2 (08:59→20:59)
[2025-01-11] MEDS: POTASSIUM CHLORIDE 20 mEq TABCR 40 MEQ PO (09:07)
--- NOTE | 2025-01-11 09:12 | PC.NURSE ---
Report given to Frieda Vincent , patient transferring to room [id number]
[2025-01-11 09:30] VITALS: BMI 20.1
[2025-01-11 09:56] VITALS: BP 132/72; PULSE 88; RESP 18; TEMP 37.1; O2SAT 95
[2025-01-11 10:47] LABS: Alanine Aminotransferase 24 U/L (10-49); Albumin/Globulin Ratio 1.7 (1.2-2.2); Alkaline Phosphatase 179 U/L (46-116); Anion Gap 9 (7-16); Aspartate Amino Transferase 72 U/L (0-34); BUN/Creatinine Ratio 24 Ratio (12-20); Bilirubin,Total 2.4 mg/dL (0.3-1.2); Blood Urea Nitrogen 12 mg/dL (9-23); Calcium 8.5 mg/dL (8.3-10.6); Calcium (Corrected) 8.5 mg/dL (8.5-10.1); Carbon Dioxide 26.6 mMol/L (20.0-31.0); Chloride 107 mMol/L (98-107); Creatinine (Component) 0.5 mg/dL (0.6-1.3); Estimated Creatinine Clearance 101.2 mL/min (>60); Globulin 2.3 gm/dL (2.3-3.5); Glucose 145 mg/dL (74-106); Osmolality,Calculated 287 (275-295); Potassium 3.7 mMol/L (3.4-5.1); Sodium 143 mMol/L (136-145); Total Protein 6.3 gm/dL (5.7-8.2); eGFR > 60 See Note
--- NOTE | 2025-01-11 10:48 | ESPR_ITS ---
<Statement entered by Selina Cristobal MD - 01/16/25 16:23> I reviewed above note and agree with findings and plans. I have also personally examined the patient with medicine team and went over assessment and plan with medical team including financial intern and resident physician. Documentation for date of: 01/11/25 Subjective Subjective Interval history: 01/11/2025: Overnight admission for 64-year-old female with history of Parkinson's and hypertension presenting with ground-level fall found to have sacral fracture (S2-S3) along with likely cholelithiasis with potential choledocholithiasis past. Patient seen and examined in hospital bed reports no abdominal pain at this time; however, states that she has been having increased urinary frequency along with lower back pain secondary to falls. Will consult general surgery regarding possible laparoscopic cholecystectomy for gallstones. Continue IV antibiotics for UTI pending cultures. Exam Vital Signs Temp Pulse Resp BP Pulse Ox O2 Del Method 98.7 F 88 18 132/72 H 95 Room Air 01/11/25 09:56 01/11/25 09:56 01/11/25 09:56 01/11/25 09:56 01/11/25 09:56 01/11/25 09:56 Narrative Exam Physical Exam: GENERAL: Awake, answering questions appropriately but with a stutter, appears stated age HEENT: NC/AT. Moist mucosa. PERRLA/EOMI. CARDIO: Heart RRR, no obvious murmurs, no JVD. PULM: No coughing or visible SOB. Lungs CTA B/L. GI: Abdomen soft, NT/ND, +BS. SKIN/MSK/EXT: Mild tremor noted. Slightly flexed hips and knees. No wounds/discoloration/rashes/edema/amputations. +Pedal pulses present B/L. NEURO: Oriented x3, no focal neurologic deficits noted. Objective Labs 01/11/25 06:49 01/11/25 10:06 Labs: Laboratory Results - last 24 hr 01/10/25 01/10/25 01/11/25 00:09 21:30 00:20 WBC 8.8 RBC 4.69 Hgb 13.6 Hct 39.2 MCV 84 MCH 29.0 MCHC 34.7 RDW Std Deviation 39.2 Plt Count 148 Neut % (Auto) 79 Lymph % (Auto) 12 [place] % (Auto) 8 Eos % (Auto) 1 Baso % (Auto) 0 Neut # (Auto) 7.0 Lymph # (Auto) 1.0 [place] # (Auto) 0.7 Eos # (Auto) 0.1 Baso # (Auto) 0.0 Immature Gran # (Auto) 0.04 H Absolute Nucleated RBC 0.00 Immature Gran % 1 H Nucleated RBC % 0 PT 11.3 INR 1.0 APTT 23.6 Sodium 140 Potassium 3.9 Chloride 105 Carbon Dioxide 24.6 Anion Gap 10 BUN 15 Creatinine 0.7 Estim Creat Clear Calc Not Performed. eGFR > 60 BUN/Creatinine Ratio 21 H Glucose 126 H Calculated Osmolality 282 Lactic Acid 1.4 Calcium 8.9 Corrected Calcium 8.9 Phosphorus 2.9 Magnesium 1.8 Total Bilirubin 3.7 H AST 17 ALT < 7 L Alkaline Phosphatase 83 Lactate Dehydrogenase 248 H Total Creatine Kinase 77 Troponin I < 0.002 Total Protein 6.7 Albumin 4.3 Globulin 2.4 Albumin/Globulin Ratio 1.8 Procalcitonin 0.09 Ur Collection Type Clean Catch Urine Color Yellow Urine Clarity Turbid A Urine pH 6.0 Ur Specific [place] 1.017 Urine Protein Negative Urine Glucose (UA) Negative Urine Ketones Negative Urine Blood Negative Urine Nitrite Positive Urine Bilirubin Negative Urine Urobilinogen (Auto) Negative Ur Leukocyte Esterase Positive Urine RBC 3 Urine WBC 18 H Ur Squamous Epith Cells 8 H Urine Bacteria 3+ A 01/11/25 06:49 WBC 5.4 RBC 4.48 Hgb 13.3 Hct 38.9 MCV 87 MCH 29.7 MCHC 34.2 RDW Std Deviation 40.7 Plt Count 149 Neut % (Auto) 63 Lymph % (Auto) 24 [place] % (Auto) 10 Eos % (Auto) 2 Baso % (Auto) 1 Neut # (Auto) 3.4 Lymph # (Auto) 1.3 [place] # (Auto) 0.6 Eos # (Auto) 0.1 Baso # (Auto) 0.0 Immature Gran # (Auto) 0.02 H Absolute Nucleated RBC 0.00 Immature Gran % 0 Nucleated RBC % 0 PT INR APTT Sodium 143 Potassium 3.5 Chloride 109 H Carbon Dioxide 23.8 Anion Gap 10 BUN 10 Creatinine 0.5 L Estim Creat Clear Calc 101.2 eGFR > 60 BUN/Creatinine Ratio 20 Glucose 104 Calculated Osmolality 283 Lactic Acid Calcium 8.3 Corrected Calcium 8.4 L Phosphorus Magnesium 1.9 Total Bilirubin 2.8 H D AST 57 H ALT 18 Alkaline Phosphatase 131 H D Lactate Dehydrogenase Total Creatine Kinase Troponin I Total Protein 6.2 Albumin 3.9 Globulin 2.3 Albumin/Globulin Ratio 1.7 Procalcitonin Ur Collection Type Urine Color Urine Clarity Urine pH Ur Specific [place] Urine Protein Urine Glucose (UA) Urine Ketones Urine Blood Urine Nitrite Urine Bilirubin Urine Urobilinogen (Auto) Ur Leukocyte Esterase Urine RBC Urine WBC Ur Squamous Epith Cells Urine Bacteria Quality Measures Quality Measures none Assessment & Plan Assessment Current Active Medications: Generic Name Dose Route Start Last Admin Trade Name Freq PRN Reason Stop Dose Admin Acetaminophen 650 mg 01/11/25 03:30 Acetaminophen 325 Mg Tablet PO 02/10/25 03:29 Q6H PRN Fever >101.5 Carbidopa/Levodopa 1 tab 01/11/25 09:00 01/11/25 08:58 Carbidopa/Levodopa Cr 50/200 Tabcr PO 02/10/25 08:59 1 tab BID CANDACE Administration Heparin Sodium (Porcine) 5,000 unit 01/11/25 09:00 01/11/25 08:59 Heparin Sod Inj 5000 Unit/Ml Vial SC 01/25/25 08:59 5,000 unit Q12HR CANDACE Administration Ceftriaxone Sodium/Dextrose 1 gm in 50 mls @ 100 mls/hr 01/11/25 21:00 Rocephin/D5w 1gm Iv Premix IV 01/18/25 20:59 QPM CANDACE Magnesium Sulfate 4 gm in 50 mls @ 12.5 mls/hr 01/11/25 08:10 Magnesium Sulfate Ivpb IV 01/11/25 12:09 X1 ONE Naloxegol 12.5 mg 01/11/25 09:00 Naloxegol Oxalate 25 Mg Tablet (Non-Formulary) PO 02/10/25 08:59 QDAY CANDACE Ondansetron HCl 4 mg 01/11/25 03:30 Ondansetron Inj 2 Mg/Ml Inj 2 Ml IV 02/10/25 03:29 Q6H PRN NAUSEA OR VOMITING Protocol Pantoprazole Sodium 40 mg 01/11/25 09:00 01/11/25 08:59 Pantoprazole 40 Mg Tablet PO 02/10/25 08:59 40 mg QDAY CANDACE Administration Rivastigmine 4.6 mg 01/11/25 09:00 01/11/25 08:58 Rivastigmine 4.6 Mg/24 Hr Patch.Td24 (Non-Formulary) TOP 02/10/25 08:59 4.6 mg QDAY CANDACE Administration Sennosides 1 tab 01/11/25 09:00 01/11/25 08:58 Senna Tablet PO 02/10/25 08:59 1 tab QDAY CANDACE Administration Protocol Plan 64-year-old female patient with significant medical history for parkinsonism and hypertension BIBA with chief complaint of ground-level fall. Patient was found to have x2 fall yesterday and this afternoon. Patient was found by caregiver in bathroom on the floor. CT negative for acute fracture, abdomen/pelvis CT revealed acute fractures second and third sacral segments without major offset and CXR was negative for pneumonia. Orthopedist Dr. Lopez was consulted who recommended admission for pain management and SNF placement, no surgery planned. #Ground-level fall Patient with x2 falls in last couple days Head CT, lumbar and cervical imaging negative for fracture Abdomn/pelvis CT showed S2-S3 acute fracture Plan: Orthopedist Dr. Lopez consulted, recommendations are greatly appreciated IV morphine PRN for pain management Physical therapy Patient will most likely need SNF placement #Elevated T-Bili, downtrending On admission patient with T bili 3.7 with temperature of 101F, liver enzymes and WBC WNL Patient denied and continues to deny abdominal pain GB US indicate normal cholelithiasis, negative for cholecystitis, normal CBD Abdomen/Pelvis CT showed cholilithiasis Plan: Monitoring liver function General Surgery consulted, appreciate recommendations #UTI On examination, patient does not have any hypogastric pain and denies having any dysuria/hematuria/fever/chills; however, does have increased urinary frequency No leukocytosis noted Urinalysis shows positive nitrites, leukocyte esterase, pyuria and 3+ bacteria Plan: Urine culture pending IV Rocephin Tylenol for fever #Parkinson disease Longstanding history of Parkinson disease on home carbidopa levodopa and rivastigmine Plan: Restarted home medications #History of hypertension Patient on home losartan 50 mg p.o. daily Plan: Will restart home medication when appropriate Hospital Management: Dispo: PT eval, SNF placement; general surgery consultation for possible lap tracee for gallstones Diet: Regular DVT/PPx: Heparin GI ppx: Protonix Lines: PIV Code Status: Full Code Patient seen and examined with attending Dr. Levar Patel, PGY-1
[2025-01-11] MEDS: Magnesium Sulfate 4 GM Ivpb 4 GM/50 ML BAG IV (10:59)
[2025-01-11 12:40] VITALS: BMI 11.0
--- NOTE | 2025-01-11 13:11 | PD.ORTHCON ---
HPI Consult details Reason for consultation narrative: Pain sacrum History of present illness: History of versus active falls. Afterwards had pain in her pelvis primary sacrum brought to the emergency room x-rays show S2-3 nondisplaced sacral fractures Past Medical History Past Medical History NEUROLOGIC: Positive Alzheimer's Disease and Parkinson's Disease; Negative Neurological Disorders, Cerebrovascular Accident, Transient Ischemic Attacks (TIA), Dementia, Brain Tumor, Meningitis, Seizures, Epilepsy, Multiple Sclerosis, Cerebral Palsy, Amyotrophic Lateral Sclerosis (ALS/Michelle Gehrig's), Spina Bifida, Paralysis, Peripheral Neuropathy, Cole's Palsy, Subdural Hematoma, Migraine, Head Trauma, Spinal Cord Injury or Traumatic Brain Injury CARDIAC: Positive Hypertension; Negative Cardiac Disorders, Myocardial Infarction, Cardiac Arrhythmia, Atrial Fibrillation, Angina, Heart Murmur, Coronary Artery Disease, Peripheral Vascular Disease, Aneurysm, Congestive Heart Failure, Congenital Heart Disease, Valvular Heart Disease, Rheumatic Fever, Cardiomyopathy, Edema, Pericarditis, Cellulitis, Deep Vein Thrombosis, Hypotension or Varicose Veins RESPIRATORY: Negative Respiratory Disorders, Chronic Obstructive Pulmonary Disease (COPD), Asthma, Bronchitis, Emphysema, Pulmonary Fibrosis, Cystic Fibrosis, Tuberculosis, Pulmonary Embolism, Pulmonary Edema or Sleep Apnea GASTROINTESTINAL: Negative Hepatitis or Colorectal Cancer GENITOURINARY: Negative Renal Disease REPRODUCTIVE: Negative Breast Cancer, Endometriosis, Genital Herpes, Gonorrhea, Pelvic Inflammatory Disease, Previous Pregnancies, Syphilis or Uterine Prolapse MUSCULOSKELETAL: Negative Musculoskeletal Disorders, Muscular Dystrophy, Myasthenia Gravis, Marfan's Syndrome, Bone Cancer, Arthritis, Rheumatoid Arthritis, Osteoporosis, Degenerative Disk Disease, Gout, Scoliosis, Carpal Tunnel Syndrome, Fibromyalgia, Fractures, Degenerative Joint Disease, Osteomyelitis or Poliovirus ENT: Negative Cataracts or Head Trauma ENDOCRINE: Negative Endocrine Disorders, Diabetes Mellitus Type 1 or Diabetes Mellitus Type 2 PSYCHO/SOCIAL: Negative Psychiatric Problems, Schizophrenia, Recreational Drug Use, Bipolar Disorder, Depression, Anxiety, Behavior Problems, Self-Mutilation, Attention Deficit Disorder, Attention Deficit Hyperactivity Disorder, Depression, Post Traumatic Stress Disorder or Eating Disorder OTHER HISTORY: Positive Hospitalization and Falls; Negative Autoimmune Disease, Down Syndrome, Autism, Developmental Delay, Shingles, Blood Transfusions, Blood Transfusion Reaction, Anesthesia Reactions, Organ Transplant, Chemotherapy, Radiation Therapy, Hyperbaric Therapy, MRSA, VRSA, Vancomycin-Resistant Enterococci, Human Immunodeficiency Virus (HIV), Chicken Pox, Measles, Mumps, Rubella (Turkish Measles), Pertussis, Clostridium Difficile, Cancer, Breast Cancer, Cervical Cancer, Colorectal Cancer, Lung Cancer or Ovarian Cancer Family History FAMILY HISTORY: Negative Family Psychiatric Problems, Family Respiratory Disorders, Family Cardiac Disorders, Family Gastrointestinal Problems, Family Genitourinary Problems, Family Endocrine Disorders, Family Reproductive Disorders, Family Musculoskeletal Disorders, Family Cancer, Family Surgery or Family Anesthesia Reaction Surgical History SURGICAL: Positive Hip Sx (R hip replacement); Negative Cardiac Surgery, Open Heart Surgery, Coronary Artery Bypass Graft, Valve Replacement, Vascular Surgery, Coronary Stent, Cardiac Catheterization, Pacemaker, Angiogram, Auto Implanted Cardiovert Defib, Carotid Endarterectomy, Endocrine Surgery, Thyroidectomy, Ear Surgery, Tympanostomy Tube, Eye Surgery, Nose Surgery, Oral Surgery, Tonsillectomy, Adenoidectomy, Cochlear Implant, Corneal Transplant, Throat Surgery, Abdominal Surgery, Tracheostomy, Gastric Bypass Surgery, Gastrostomy, Bowel Surgery, Nephrectomy, Bladder Sling, Ureteral Stent, Joint Replacement, of Shoulder Sx, Amputation, Knee Sx, Open Reduction Internal Fixation, Arthroscopy, of Back Surgery, Neurologic Surgery, Brain Shunt, Lumpectomy, Hysterectomy, Tubal Ligation, Section, Organ Transplant or ESWL Social History SMOKING STATUS: Former smoker Meds Home Medications and Allergies Home Medications ?Medication ?Instructions ?Recorded ?Confirmed ?Type FLUTICASONE/SALMETEROL (ADVAIR 1 puff inhalation BID ##60 02/26/15 History 250/50 DISKUS) Losartan Potassium * (COZAAR *) 50 mg PO QDAY ##30 02/26/15 History Metformin Hcl 500 mg PO QDAY ##60 02/26/15 History TIOTROPIUM BROMIDE (SPIRIVA 18 MCG) 1 puff inhalation QDAY ##30 02/26/15 History ciprofloxacin HCl 500 mg tablet 500 mg PO BID #7 tabs 04/08/15 History Allergies Allergy/AdvReac Type Severity Reaction Status Date / Time No Known Allergies Allergy Unverified 01/10/25 19:49 Exam Vital Signs Temp Pulse Resp BP Pulse Ox O2 Del Method 98.7 F 88 18 132/72 H 95 Room Air 01/11/25 09:56 01/11/25 09:56 01/11/25 09:56 01/11/25 09:56 01/11/25 09:56 01/11/25 09:56 Vital signs stable Narrative Exam Patient is alert. Does have features of parkinsonism. Voice very soft. I can understand her. Her primary complaint is sacral. Able to turn head [id number] up and down. No pain shoulders elbows wrist hands or fingers. Does have muscle atrophy characteristic of people that are very and active during the aging process. Will check the pain in her chest abdomen. Pain sacrum. Has motion in both hips knees and ankles without swelling. Remarkably good range of motion. No edema. Results - Ortho Labs 01/11/25 06:49 01/11/25 10:06 Labs: Short CBC 01/10/25 01/11/25 Range/Units 00:09 06:49 WBC 8.8 5.4 (3.6-11.0) Thou/mm3 Hgb 13.6 13.3 (12.0-16.0) g/dL Hct 39.2 38.9 (36.0-46.0) % Plt Count 148 149 (140-440) Thou/mm3 BMP 01/10/25 01/11/25 01/11/25 00:09 06:49 10:06 Sodium 140 143 143 Potassium 3.9 3.5 3.7 Chloride 105 109 H 107 Carbon Dioxide 24.6 23.8 26.6 BUN 15 10 12 Creatinine 0.7 0.5 L 0.5 L Glucose 126 H 104 145 H Calcium 8.9 8.3 8.5 Cardiac Enzymes 01/10/25 01/11/25 Range/Units 00:09 00:20 Total Creatine Kinase 77 (34-171) U/L Troponin I < 0.002 (0.0-0.045) ng/mL Liver Function 01/10/25 01/11/25 01/11/25 Range/Units 00:09 06:49 10:06 Total Bilirubin 3.7 H 2.8 H D 2.4 H (0.3-1.2) mg/dL AST 17 57 H 72 H (0-34) U/L ALT < 7 L 18 24 (10-49) U/L Alkaline Phosphatase 83 131 H D 179 H D (46-116) U/L Albumin 4.3 3.9 4.0 (3.4-4.8) gm/dL Urine 01/10/25 Range/Units 21:30 Urine Color Yellow (Lt Yel-Yel) Urine Clarity Turbid A (Clear/Hazy) Urine pH 6.0 (5.0-7.0) Ur Specific [place] 1.017 (1.001-1.035) Urine Protein Negative (Neg - Trace) Urine Glucose (UA) Negative (Negative) Hemoglobin 13.3, electrolytes within normal limits Assessment & Plan Additional Assessment Additional comments: Nondisplaced fracture S2-3. I talked to her sister. She has 7 sibs. She is probably going to be moving back to the [place]. Do not anticipate surgery. Try to get her up with physical therapy weight-bear to tolerance on both lower extremities. Her sister said her ambulation has been virtually nil recently it has been standing to wheelchair wheelchair to bed wheelchair to toilet Plan Physical therapy weight-bear to tolerance using walker obviously needs full protections
--- NOTE | 2025-01-11 14:31 | PC.NURSE ---
call to pharm, send movantik please
[2025-01-11 15:51] VITALS: BP 110/62; PULSE 82; RESP 18; TEMP 37.1; O2SAT 95
[2025-01-11] MEDS: NALOXEGOL OXALATE 25 MG TABLET (NON-FORMULARY) 12.5 MG PO (17:41)
[2025-01-11 20:00] VITALS: BP 99/71; PULSE 82; RESP 19; TEMP 36.4; O2SAT 91
[2025-01-12] VITALS (7 sets, daily range): BP systolic 107–155; BP diastolic 67–88; PULSE 71–807; RESP 16–95; TEMP 36.2–36.6; O2SAT 93–96
[2025-01-12] MEDS: ACETAMINOPHEN 325 MG TABLET 650 MG PO (05:04)
[2025-01-12 05:37] LABS: Basophils % (Auto) 1 % (0-2.5); Eosinophils # (Auto) 0.1 Thou/mm3 (0.0-0.5); Eosinophils % (Auto) 2 % (0-10); Immature Granulocytes % (Auto) 0 % (0-0); Immature Granulocytes Auto 0.01 Thou/mm3 (0.00-0.00); Lymphocytes # (Auto) 1.4 Thou/mm3 (1.0-4.8); Lymphocytes % (Auto) 23 % (10-50); Mean Corpuscular HGB Conc 33.3 g/dl (31.0-37.0); Mean Corpuscular Hemoglobin 28.8 pg (25.0-35.0); Mean Corpuscular Volume 86 fL (80-100); Monocytes # (Auto) 0.6 Thou/mm3 (0.0-0.8); Monocytes % (Auto) 10 % (0-12); Neutrophils # (Auto) 3.9 Thou/mm3 (1.8-7.7); Neutrophils % (Auto) 64 % (37-80); Nucleated Red Blood Cell % 0 /100 WBC (0); Platelet Count 164 Thou/mm3 (140-440); RDW Standard Deviation 41.1 fL (36.4-46.3); Red Blood Count 4.52 Miln/mm3 (4.00-5.20)
[2025-01-12 06:29] LABS: Alanine Aminotransferase < 7 U/L (10-49); Albumin, Serum 4.2 gm/dL (3.4-4.8); Albumin/Globulin Ratio 1.8 (1.2-2.2); Alkaline Phosphatase 145 U/L (46-116); Anion Gap 10 (7-16); Aspartate Amino Transferase 29 U/L (0-34); BUN/Creatinine Ratio 18 Ratio (12-20); Bilirubin,Total 2.3 mg/dL (0.3-1.2); Blood Urea Nitrogen 9 mg/dL (9-23); Calcium 8.6 mg/dL (8.3-10.6); Calcium (Corrected) 8.6 mg/dL (8.5-10.1); Carbon Dioxide 26.2 mMol/L (20.0-31.0); Chloride 106 mMol/L (98-107); Creatinine (Component) 0.5 mg/dL (0.6-1.3); Estimated Creatinine Clearance 101.2 mL/min (>60); Globulin 2.4 gm/dL (2.3-3.5); Glucose 99 mg/dL (74-106); Magnesium 2.2 mg/dL (1.6-2.6); Osmolality,Calculated 281 (275-295); Phosphorous 2.9 mg/dL (2.4-5.1); Sodium 142 mMol/L (136-145); Total Protein 6.6 gm/dL (5.7-8.2); eGFR > 60 See Note
--- NOTE | 2025-01-12 07:10 | ESPR_ITS ---
<Statement entered by Selina Cristobal MD - 01/16/25 16:24> I reviewed above note and agree with findings and plans. I have also personally examined the patient with medicine team and went over assessment and plan with medical team including global marketing intern and resident physician. Documentation for date of: 01/12/25 Subjective Subjective Interval history: 01/12/2025: Patient seen and examined, reports no concerning symptoms at this time. Pending General surgery recommendations regarding possible lap cholecystectomy. Exam Vital Signs Temp Pulse Resp BP Pulse Ox O2 Del Method 97.7 F 76 18 127/79 93 L Room Air 01/12/25 04:00 01/12/25 04:00 01/12/25 04:00 01/12/25 04:00 01/12/25 04:00 01/12/25 04:00 Narrative Exam Physical Exam: GENERAL: Awake, answering questions appropriately but with a stutter, appears stated age HEENT: NC/AT. Moist mucosa. PERRLA/EOMI. CARDIO: Heart RRR, no obvious murmurs, no JVD. PULM: No coughing or visible SOB. Lungs CTA B/L. GI: Abdomen soft, NT/ND, +BS. SKIN/MSK/EXT: Mild tremor noted. Slightly flexed hips and knees. No wounds/discoloration/rashes/edema/amputations. +Pedal pulses present B/L. NEURO: Oriented x3, no focal neurologic deficits noted. Objective Labs 01/12/25 04:59 01/12/25 04:59 Labs: Laboratory Results - last 24 hr 01/11/25 01/11/25 01/12/25 06:49 10:06 04:59 WBC 5.4 6.0 RBC 4.48 4.52 Hgb 13.3 13.0 Hct 38.9 39.0 MCV 87 86 MCH 29.7 28.8 MCHC 34.2 33.3 RDW Std Deviation 40.7 41.1 Plt Count 149 164 Neut % (Auto) 63 64 Lymph % (Auto) 24 23 [place] % (Auto) 10 10 Eos % (Auto) 2 2 Baso % (Auto) 1 1 Neut # (Auto) 3.4 3.9 Lymph # (Auto) 1.3 1.4 [place] # (Auto) 0.6 0.6 Eos # (Auto) 0.1 0.1 Baso # (Auto) 0.0 0.0 Immature Gran # (Auto) 0.02 H 0.01 H Absolute Nucleated RBC 0.00 0.00 Immature Gran % 0 0 Nucleated RBC % 0 0 Sodium 143 143 142 Potassium 3.5 3.7 4.0 Chloride 109 H 107 106 Carbon Dioxide 23.8 26.6 26.2 Anion Gap 10 9 10 BUN 10 12 9 Creatinine 0.5 L 0.5 L 0.5 L Estim Creat Clear Calc 101.2 101.2 101.2 eGFR > 60 > 60 > 60 BUN/Creatinine Ratio 20 24 H 18 Glucose 104 145 H 99 Calculated Osmolality 283 287 281 Calcium 8.3 8.5 8.6 Corrected Calcium 8.4 L 8.5 8.6 Phosphorus 2.9 Magnesium 1.9 2.2 Total Bilirubin 2.8 H D 2.4 H 2.3 H AST 57 H 72 H 29 ALT 18 24 < 7 L Alkaline Phosphatase 131 H D 179 H D 145 H D Total Protein 6.2 6.3 6.6 Albumin 3.9 4.0 4.2 Globulin 2.3 2.3 2.4 Albumin/Globulin Ratio 1.7 1.7 1.8 Quality Measures Quality Measures none Assessment & Plan Assessment Current Active Medications: Generic Name Dose Route Start Last Admin Trade Name Freq PRN Reason Stop Dose Admin Acetaminophen 650 mg 01/11/25 03:30 Acetaminophen 325 Mg Tablet PO 02/10/25 03:29 Q6H PRN Fever >101.5 Acetaminophen 650 mg 01/12/25 04:53 01/12/25 05:04 Acetaminophen 325 Mg Tablet PO 02/11/25 04:52 650 mg Q6HR PRN Administration PAIN SCALE 1-3 (mild Carbidopa/Levodopa 1 tab 01/11/25 09:00 01/11/25 20:59 Carbidopa/Levodopa Cr 50/200 Tabcr PO 02/10/25 08:59 1 tab BID CANDACE Administration Heparin Sodium (Porcine) 5,000 unit 01/11/25 09:00 01/11/25 20:59 Heparin Sod Inj 5000 Unit/Ml Vial SC 01/25/25 08:59 5,000 unit Q12HR CANDACE Administration Ceftriaxone Sodium/Dextrose 1 gm in 50 mls @ 100 mls/hr 01/11/25 21:00 01/11/25 20:59 Rocephin/D5w 1gm Iv Premix IV 01/18/25 20:59 100 mls/hr QPM CANDACE Administration Losartan Potassium 50 mg 01/12/25 09:00 Losartan Potassium 25 Mg Tablet PO 02/11/25 08:59 QDAY CANDACE Naloxegol 12.5 mg 01/11/25 09:00 01/11/25 17:41 Naloxegol Oxalate 25 Mg Tablet (Non-Formulary) PO 02/10/25 08:59 12.5 mg QDAY CANDACE Administration Ondansetron HCl 4 mg 01/11/25 03:30 Ondansetron Inj 2 Mg/Ml Inj 2 Ml IV 02/10/25 03:29 Q6H PRN NAUSEA OR VOMITING Protocol Pantoprazole Sodium 40 mg 01/11/25 09:00 01/11/25 08:59 Pantoprazole 40 Mg Tablet PO 02/10/25 08:59 40 mg QDAY CANDACE Administration Rivastigmine 4.6 mg 01/11/25 09:00 01/11/25 08:58 Rivastigmine 4.6 Mg/24 Hr Patch.Td24 (Non-Formulary) TOP 02/10/25 08:59 4.6 mg QDAY CANDACE Administration Sennosides 1 tab 01/11/25 09:00 01/11/25 08:58 Senna Tablet PO 02/10/25 08:59 1 tab QDAY CANDACE Administration Protocol Plan 64-year-old female patient with significant medical history for parkinsonism and hypertension BIBA with chief complaint of ground-level fall. Patient was found to have x2 fall yesterday and this afternoon. Patient was found by caregiver in bathroom on the floor. CT negative for acute fracture, abdomen/pelvis CT revealed acute fractures second and third sacral segments without major offset and CXR was negative for pneumonia. Orthopedist Dr. Lopez was consulted who recommended admission for pain management and SNF placement, no surgery planned. #Ground-level fall Patient with x2 falls in last couple days Head CT, lumbar and cervical imaging negative for fracture Abdomn/pelvis CT showed S2-S3 acute fracture Plan: Orthopedist Dr. Lopez consulted, recommendations are greatly appreciated IV morphine PRN for pain management Physical therapy Patient will most likely need SNF placement #Elevated T-Bili, downtrending On admission patient with T bili 3.7 with temperature of 101F, liver enzymes and WBC WNL Patient denied and continues to deny abdominal pain GB US indicate normal cholelithiasis, negative for cholecystitis, normal CBD Abdomen/Pelvis CT showed cholilithiasis Plan: Monitoring liver function General Surgery consulted, appreciate recommendations #UTI On examination, patient does not have any hypogastric pain and denies having any dysuria/hematuria/fever/chills; however, does have increased urinary frequency No leukocytosis noted Urinalysis shows positive nitrites, leukocyte esterase, pyuria and 3+ bacteria Plan: Urine culture pending IV Rocephin Tylenol for fever #Parkinson disease Longstanding history of Parkinson disease on home carbidopa levodopa and rivastigmine Plan: Continue home medications #History of hypertension Patient on home losartan 50 mg p.o. daily Plan: Will restart home medication when appropriate Hospital Management: Dispo: PT eval, SNF placement; general surgery consultation for possible lap tracee for gallstones Diet: Regular DVT/PPx: Heparin GI ppx: Protonix Lines: PIV Code Status: Full Code Patient seen and examined with attending Dr. Levar Patel, PGY-1
--- NOTE | 2025-01-12 08:17 | PC.SS ---
Patient is alert. However, patient's speech is slurred and difficult to understand. Patient was admitted for a fall. SS spoke to patient's son via p/c. Son states patient resides with him and family. Patient requires total care. She is non ambulatory and cannot do her transfers. Patient uses a wheelchair. Patient's son and are main careproviders. Son states patient fell off toilet when was assisting. Patient follows with Neurology. Pcp: Karen Calero NP @ [facility]. Pharmacy: [facility]. Alt medical decision maker: Venu Solares, . Discussed d/c options of HH vs SNF with son.
[2025-01-12] MEDS: CARBIDOPA/LEVODOPA CR 50/200 TABCR 1 TAB PO ×2 (08:18→20:23)
[2025-01-12] MEDS: HEPARIN SOD INJ 5000 UNIT/ML VIAL SC ×2 (08:18→20:23)
[2025-01-12] MEDS: LIDOCAINE 5% 1 PATCH TOP (08:18)
[2025-01-12] MEDS: SENNA TABLET 1 TAB PO (08:19)
[2025-01-12] MEDS: PANTOPRAZOLE 40 MG TABLET PO (08:19)
[2025-01-12] MEDS: LOSARTAN POTASSIUM 25 MG TABLET 50 MG PO (08:19)
[2025-01-12] MEDS: NALOXEGOL OXALATE 25 MG TABLET (NON-FORMULARY) 12.5 MG PO (08:19)
[2025-01-12] MEDS: RIVASTIGMINE 4.6 MG/24 HR TOP (09:10)
--- NOTE | 2025-01-12 16:51 | PC.NURSE ---
[facility] [id number].
[2025-01-12] MEDS: HYDROcodone/APAP 5/325 TABLET 1 TAB PO (19:15)
[2025-01-12] MEDS: cefTRIAXone/D5w 1gm IV premix 1 GM/50 ML BAG IV (20:22)
--- NOTE | 2025-01-12 21:03 | CONPN_ITS ---
Subjective Subjective Brief History: History of versus active falls. Afterwards had pain in her pelvis primary sacrum brought to the emergency room x-rays show S2-3 nondisplaced sacral fractures Narrative: Continues pain sacrum Exam Vital Signs Temp Pulse Resp BP Pulse Ox O2 Del Method 97.4 F 80 19 126/72 96 Room Air 01/12/25 20:00 01/12/25 20:00 01/12/25 20:00 01/12/25 20:00 01/12/25 20:00 01/12/25 20:00 Vital signs stable Narrative Exam She is alert. Very soft voice. Answers questions appropriately. Continued pain sacrum. Objective - Ortho Labs 01/12/25 04:59 01/12/25 04:59 Labs: Laboratory Results - last 24 hr 01/12/25 04:59 WBC 6.0 RBC 4.52 Hgb 13.0 Hct 39.0 MCV 86 MCH 28.8 MCHC 33.3 RDW Std Deviation 41.1 Plt Count 164 Neut % (Auto) 64 Lymph % (Auto) 23 [place] % (Auto) 10 Eos % (Auto) 2 Baso % (Auto) 1 Neut # (Auto) 3.9 Lymph # (Auto) 1.4 [place] # (Auto) 0.6 Eos # (Auto) 0.1 Baso # (Auto) 0.0 Immature Gran # (Auto) 0.01 H Absolute Nucleated RBC 0.00 Immature Gran % 0 Nucleated RBC % 0 Sodium 142 Potassium 4.0 Chloride 106 Carbon Dioxide 26.2 Anion Gap 10 BUN 9 Creatinine 0.5 L Estim Creat Clear Calc 101.2 eGFR > 60 BUN/Creatinine Ratio 18 Glucose 99 Calculated Osmolality 281 Calcium 8.6 Corrected Calcium 8.6 Phosphorus 2.9 Magnesium 2.2 Total Bilirubin 2.3 H AST 29 ALT < 7 L Alkaline Phosphatase 145 H D Total Protein 6.6 Albumin 4.2 Globulin 2.4 Albumin/Globulin Ratio 1.8 Hemoglobin 13 Assessment & Plan Assessment Additional comments: Up with PT weight-bear to tolerance Plan Will see how physical therapy goes tomorrow. correction placement most likely. director of medical staff services to get involved with placement Documentation for date of: 01/12/25
[2025-01-13] VITALS (9 sets, daily range): BP systolic 99–168; BP diastolic 53–89; PULSE 66–115; RESP 16–96; TEMP 36.1–36.7; O2SAT 91–96
[2025-01-13 05:53] LABS: Basophils % (Auto) 1 % (0-2.5); Eosinophils # (Auto) 0.2 Thou/mm3 (0.0-0.5); Eosinophils % (Auto) 3 % (0-10); Hematocrit 38.3 % (36.0-46.0); Hemoglobin 12.9 g/dL (12.0-16.0); Immature Granulocytes % (Auto) 0 % (0-0); Immature Granulocytes Auto 0.02 Thou/mm3 (0.00-0.00); Lymphocytes % (Auto) 31 % (10-50); Mean Corpuscular HGB Conc 33.7 g/dl (31.0-37.0); Mean Corpuscular Hemoglobin 29.1 pg (25.0-35.0); Mean Corpuscular Volume 86 fL (80-100); Monocytes # (Auto) 0.6 Thou/mm3 (0.0-0.8); Monocytes % (Auto) 9 % (0-12); Neutrophils # (Auto) 3.6 Thou/mm3 (1.8-7.7); Neutrophils % (Auto) 56 % (37-80); Nucleated Red Blood Cell % 0 /100 WBC (0); Platelet Count 163 Thou/mm3 (140-440); RDW Standard Deviation 41.1 fL (36.4-46.3); Red Blood Count 4.44 Miln/mm3 (4.00-5.20); White Blood Count 6.3 Thou/mm3 (3.6-11.0)
[2025-01-13 06:43] LABS: Alanine Aminotransferase < 7 U/L (10-49); Albumin/Globulin Ratio 1.7 (1.2-2.2); Alkaline Phosphatase 121 U/L (46-116); Anion Gap 9 (7-16); Aspartate Amino Transferase 15 U/L (0-34); BUN/Creatinine Ratio 26 Ratio (12-20); Bilirubin,Total 1.1 mg/dL (0.3-1.2); Blood Urea Nitrogen 13 mg/dL (9-23); Calcium 8.7 mg/dL (8.3-10.6); Calcium (Corrected) 8.7 mg/dL (8.5-10.1); Carbon Dioxide 26.5 mMol/L (20.0-31.0); Chloride 106 mMol/L (98-107); Creatinine (Component) 0.5 mg/dL (0.6-1.3); Estimated Creatinine Clearance 101.2 mL/min (>60); Globulin 2.4 gm/dL (2.3-3.5); Glucose 97 mg/dL (74-106); Osmolality,Calculated 281 (275-295); Phosphorous 3.4 mg/dL (2.4-5.1); Potassium 3.6 mMol/L (3.4-5.1); Sodium 141 mMol/L (136-145); Total Protein 6.4 gm/dL (5.7-8.2); eGFR > 60 See Note
--- NOTE | 2025-01-13 07:52 | XR_ITS ---
Examination: CT abdomen with intravenous contrast CT pelvis with intravenous contrast 2-D coronal reconstructions 2-D sagittal reconstructions Date and time of exam:January 13, 2025 and 53 hours Comparison January 10, 2025 INDICATIONS: History cholelithiasis, elevated bilirubin on laboratory examination this week. CTDI: vol (mGy) 6.94 DLP: (mGycm) 370 Technique: Multiple axial sections of the abdomen and pelvis have been obtained. 64 slice high-resolution scanner used. 3 mm axial sections have been obtained, post intravenous injection 60 cc [id number] 2-D sagittal, coronal reconstructions obtained. Low dose protocols were performed. One or more of the following dose reduction techniques were used; automated exposure control, adjustment of the mA and/or KV according to patient size, use of iterative reconstruction technique. Findings: Small pericardial effusion Small right pleural effusion No focal liver or splenic lesions Gallstones Motion degrades gallbladder wall imaging Small calcification pancreas No renal or ureteral calculi, no hydronephrosis No bowel obstruction Abundant stool in the rectum with rectal wall thickening, mild No bladder mass or bladder calculi Prominent osteopenia Retroverted uterus Old healed right hip fracture IMPRESSION: Cholelithiasis, recommend repeat gallbladder sonography to exclude gallbladder wall thickening No definite extrahepatic biliary tract dilatation Abundant stool in the rectum with probable proctitis pattern, clinical correlation advised
--- NOTE | 2025-01-13 08:37 | EVENTNT_ITS ---
Documentation for date of: 01/13/25 Event Note Event Note: 01/13/2025: Rapid response called sometime around 8:30 AM for patient having episode of choking on food particles. Nurse witnessed 15 seconds of choking episode with cyanosis of the lips and called rapid response. presented to the room and assessed the patient's airway, breathing and circulation, at that time patient had stopped choking on the food and was able to communicate verbally. Patient's vitals were within normal limits and SpO2 was satting 94+ initially on room air but then started on 2 L nasal cannula. Will order chest x-ray within 1 hour to assess for possible aspiration event, modify patient's diet to dysphagia 2, order guaifenesin, chest physio and suctioning. Rich Patel, PGY-1 Patient was examined with the team including attending physician. Note reviewed, I agree with the rapid response summary as documented. - Roger Moore MD PGY2 Disclaimer: The document may contain phonetic/typographic errors due to voice recognition software. These errors are purely due to imperfections in the software program and should not be misconstrued in any way to compromise the substance of the patient's medical care during this visit.
--- NOTE | 2025-01-13 08:55 | CHAP ---
Responded to Rapid Response (08:27) and prayed for patient after medical team was had left.
[2025-01-13] MEDS: POLYETHYLENE GLYCOL 17 GM PACKET PO (10:00)
[2025-01-13] MEDS: guaiFENesin SYRUP 200 MG/10 ML UDC 100 MG PO (10:00)
--- NOTE | 2025-01-13 10:00 | XR_ITS ---
Examination: AP chest single view TECHNIQUE: Portable sitting AP chest single view Date and time: January 13, 2025 0954 hours Comparison January 10, 2025 INDICATIONS: Coughing congestion this week. FINDINGS: Normal heart size No aspiration pneumonia Prominent osteopenia IMPRESSION: No aspiration pneumonia
[2025-01-13] MEDS: SENNA TABLET 1 TAB PO (10:02)
[2025-01-13] MEDS: NALOXEGOL OXALATE 25 MG TABLET (NON-FORMULARY) 12.5 MG PO (10:02)
[2025-01-13] MEDS: LOSARTAN POTASSIUM 25 MG TABLET 50 MG PO (10:02)
[2025-01-13] MEDS: RIVASTIGMINE 4.6 MG/24 HR TOP (10:03)
[2025-01-13] MEDS: HEPARIN SOD INJ 5000 UNIT/ML VIAL SC ×2 (10:03→20:28)
[2025-01-13] MEDS: PANTOPRAZOLE 40 MG TABLET PO (10:03)
[2025-01-13] MEDS: CARBIDOPA/LEVODOPA CR 50/200 TABCR 1 TAB PO ×2 (10:03→20:28)
--- NOTE | 2025-01-13 11:18 | PCS.ST ---
Swallow Evaluation completed. See report for details. Dysphagia 2/regular liquids, STRICT swallowing/aspiration precautions. ST will follow.
--- NOTE | 2025-01-13 12:56 | ESPR_ITS ---
<Statement entered by Selina Cristobal MD - 01/16/25 16:25> I reviewed above note and agree with findings and plans. I have also personally examined the patient with medicine team and went over assessment and plan with medical team including advertising intern and resident physician. Documentation for date of: 01/13/25 Subjective Subjective Interval history: 01/13/2025: No acute overnight events to report. Patient did have a rapid response as outlined in previous note. Seen and examined afterwards reporting no concerning symptoms and chest x-ray is largely negative with no acute findings. Speech was able to evaluate the patient and their recommendation is to continue dysphagia tube/no regular liquids with aspiration precautions. Patient also completed CT abdomen pelvis with contrast as requested by general surgery to assess for need of possible laparoscopic cholecystectomy. Will continue to monitor the patient and expect discharge within the next 24 hours. Exam Vital Signs Temp Pulse Resp BP Pulse Ox O2 Del Method O2 Flow Rate 97.4 F 71 18 141/77 H 93 L Nasal Cannula 1 01/13/25 12:00 01/13/25 12:00 01/13/25 12:00 01/13/25 12:00 01/13/25 12:00 01/13/25 12:00 01/13/25 12:00 Narrative Exam Physical Exam: GENERAL: Awake, answering questions appropriately but with a stutter, appears stated age HEENT: NC/AT. Moist mucosa. PERRLA/EOMI. CARDIO: Heart RRR, no obvious murmurs, no JVD. PULM: No coughing or visible SOB. Lungs CTA B/L. GI: Abdomen soft, NT/ND, +BS. SKIN/MSK/EXT: Mild tremor noted. Slightly flexed hips and knees. No wounds/discoloration/rashes/edema/amputations. +Pedal pulses present B/L. NEURO: Oriented x3, no focal neurologic deficits noted. Objective Labs 01/13/25 05:24 01/13/25 05:24 Labs: Laboratory Results - last 24 hr 01/13/25 05:24 WBC 6.3 RBC 4.44 Hgb 12.9 Hct 38.3 MCV 86 MCH 29.1 MCHC 33.7 RDW Std Deviation 41.1 Plt Count 163 Neut % (Auto) 56 Lymph % (Auto) 31 [place] % (Auto) 9 Eos % (Auto) 3 Baso % (Auto) 1 Neut # (Auto) 3.6 Lymph # (Auto) 2.0 [place] # (Auto) 0.6 Eos # (Auto) 0.2 Baso # (Auto) 0.0 Immature Gran # (Auto) 0.02 H Absolute Nucleated RBC 0.00 Immature Gran % 0 Nucleated RBC % 0 Sodium 141 Potassium 3.6 Chloride 106 Carbon Dioxide 26.5 Anion Gap 9 BUN 13 Creatinine 0.5 L Estim Creat Clear Calc 101.2 eGFR > 60 BUN/Creatinine Ratio 26 H Glucose 97 Calculated Osmolality 281 Calcium 8.7 Corrected Calcium 8.7 Phosphorus 3.4 Magnesium 2.0 Total Bilirubin 1.1 D AST 15 ALT < 7 L Alkaline Phosphatase 121 H D Total Protein 6.4 Albumin 4.0 Globulin 2.4 Albumin/Globulin Ratio 1.7 Quality Measures Quality Measures none Assessment & Plan Assessment Current Active Medications: Generic Name Dose Route Start Last Admin Trade Name Freq PRN Reason Stop Dose Admin Acetaminophen 650 mg 01/11/25 03:30 Acetaminophen 325 Mg Tablet PO 02/10/25 03:29 Q6H PRN Fever >101.5 Acetaminophen 650 mg 01/12/25 04:53 01/12/25 05:04 Acetaminophen 325 Mg Tablet PO 02/11/25 04:52 650 mg Q6HR PRN Administration PAIN SCALE 1-3 (mild Hydrocodone Bitart/Acetaminophen 1 tab 01/12/25 07:50 01/12/25 19:15 Hydrocodone/Apap 5/325 Tablet PO 01/17/25 07:49 1 tab Q6HR PRN Administration Pain 4-6 Carbidopa/Levodopa 1 tab 01/11/25 09:00 01/13/25 10:03 Carbidopa/Levodopa Cr 50/200 Tabcr PO 02/10/25 08:59 1 tab BID CANDACE Administration Heparin Sodium (Porcine) 5,000 unit 01/11/25 09:00 01/13/25 10:03 Heparin Sod Inj 5000 Unit/Ml Vial SC 01/25/25 08:59 5,000 unit Q12HR CANDACE Administration Ceftriaxone Sodium/Dextrose 1 gm in 50 mls @ 100 mls/hr 01/11/25 21:00 01/12/25 20:22 Rocephin/D5w 1gm Iv Premix IV 01/18/25 20:59 100 mls/hr QPM CANDACE Administration Losartan Potassium 50 mg 01/12/25 09:00 01/13/25 10:02 Losartan Potassium 25 Mg Tablet PO 02/11/25 08:59 50 mg QDAY CANDACE Administration Morphine Sulfate 2 mg 01/12/25 07:50 Morphine Sulf Inj 10 Mg/Ml Vial IVP 01/17/25 07:49 Q6HR PRN Pain 7-10 Naloxegol 12.5 mg 01/11/25 09:00 01/13/25 10:02 Naloxegol Oxalate 25 Mg Tablet (Non-Formulary) PO 02/10/25 08:59 12.5 mg QDAY CANDACE Administration Ondansetron HCl 4 mg 01/11/25 03:30 Ondansetron Inj 2 Mg/Ml Inj 2 Ml IV 02/10/25 03:29 Q6H PRN NAUSEA OR VOMITING Protocol Pantoprazole Sodium 40 mg 01/11/25 09:00 01/13/25 10:03 Pantoprazole 40 Mg Tablet PO 02/10/25 08:59 40 mg QDAY CANDACE Administration Rivastigmine 4.6 mg 01/11/25 09:00 01/13/25 10:03 Rivastigmine 4.6 Mg/24 Hr Patch.Td24 (Non-Formulary) TOP 02/10/25 08:59 4.6 mg QDAY CANDACE Administration Sennosides 1 tab 01/11/25 09:00 01/13/25 10:02 Senna Tablet PO 02/10/25 08:59 1 tab QDAY CANDACE Administration Protocol Plan 64-year-old female patient with significant medical history for parkinsonism and hypertension BIBA with chief complaint of ground-level fall. Patient was found to have x2 fall yesterday and this afternoon. Patient was found by caregiver in bathroom on the floor. CT negative for acute fracture, abdomen/pelvis CT revealed acute fractures second and third sacral segments without major offset and CXR was negative for pneumonia. Orthopedist Dr. Lopez was consulted who recommended admission for pain management and SNF placement, no surgery planned. #Ground-level fall Patient with x2 falls in last couple days Head CT, lumbar and cervical imaging negative for fracture Abdomn/pelvis CT showed S2-S3 acute fracture Plan: Orthopedist Dr. Lopez consulted, recommendations are greatly appreciated IV morphine PRN for pain management Physical therapy Patient will most likely need SNF placement #Elevated T-Bili, downtrending On admission patient with T bili 3.7 with temperature of 101F, liver enzymes and WBC WNL Patient denied and continues to deny abdominal pain GB US indicate normal cholelithiasis, negative for cholecystitis, normal CBD Abdomen/Pelvis CT showed cholilithiasis Plan: Monitoring liver function General Surgery consulted, appreciate recommendations #UTI On examination, patient does not have any hypogastric pain and denies having any dysuria/hematuria/fever/chills; however, does have increased urinary frequency No leukocytosis noted Urinalysis shows positive nitrites, leukocyte esterase, pyuria and 3+ bacteria Plan: Urine culture pending IV Rocephin Tylenol for fever #Parkinson disease Longstanding history of Parkinson disease on home carbidopa levodopa and rivastigmine Plan: Continue home medications #History of hypertension Patient on home losartan 50 mg p.o. daily Plan: Will restart home medication when appropriate Hospital Management: Dispo: PT eval, SNF placement; general surgery consultation for possible lap tracee for gallstones Diet: Regular DVT/PPx: Heparin GI ppx: Protonix Lines: PIV Code Status: Full Code Patient seen and examined with attending Dr. Cristobal and senior resident Dr. Oscar Patel, PGY-1 LPatient examined and case discussed with the team including attending physician. Note reviewed, I agree with the care plan as documented. Ms Daley is a 64-year-old female patient with significant medical history for Parkinson's admitted for a ground-level fall. CT negative for acute fracture, abdomen/pelvis CT revealed acute fractures second and third sacral segments without major offset and CXR was negative for pneumonia. Head CT, lumbar and cervical imaging negative for fracture. Abdomn/pelvis CT showed S2-S3 acute fracture. Plan: Orthopedist Dr. Lopez was consulted who recommended admission for pain management and SNF placement, no surgery planned. Dispo: Physical therapy eval pending. Patient will most likely need SNF placement Please refer to the note above for further details. - Roger Moore MD, PGY 2 Disclaimer: The document may contain phonetic/typographic errors due to voice recognition software. These errors are purely due to imperfections in the software program and should not be misconstrued in any way to compromise the substance of the patient's medical care during this visitSerenity Aguilar
--- NOTE | 2025-01-13 17:29 | PD.SURCONPRO ---
Documentation for date of: 01/13/25 Subjective Subjective Narrative: Pt had an episode of choking on food this morning, is doing well now with no complaints and confirms she has never had epigastric/RUQ pain. She underwent CT AP which showed only cholelithiasis as well as proctitis Exam Vital Signs Temp Pulse Resp BP Pulse Ox O2 Del Method O2 Flow Rate 97.4 F 71 18 141/77 H 93 L Nasal Cannula 1 01/13/25 12:00 01/13/25 12:00 01/13/25 12:00 01/13/25 12:00 01/13/25 12:00 01/13/25 12:00 01/13/25 12:00 Constitutional Constitutional: no acute distress Routine Respiratory Exam Respiratory: Present no resp distress Routine Abdominal Exam Abdominal: Present soft; Absent tenderness or distended Results Results: Laboratory Laboratory results: results reviewed Results: Imaging CT scan - abdomen: report reviewed Assessment & Plan Plan 64F with Parkinson's, admitted with sacral fracture and found to have cholelithiasis due to hyperbilirubinemia which is now resolved. As pt has not had symptoms of biliary colic I would not pursue any surgical intervention Please reconsult as needed
[2025-01-13] MEDS: cefTRIAXone/D5w 1gm IV premix 1 GM/50 ML BAG IV (20:28)
--- NOTE | 2025-01-13 22:01 | CONPN_ITS ---
Subjective Subjective Brief History: History of versus active falls. Afterwards had pain in her pelvis primary sacrum brought to the emergency room x-rays show S2-3 nondisplaced sacral fractures Narrative: Less pain sacrum Exam Vital Signs Temp Pulse Resp BP Pulse Ox O2 Del Method O2 Flow Rate 97.7 F 72 18 138/86 H 95 Room Air 1 01/13/25 16:00 01/13/25 16:00 01/13/25 16:00 01/13/25 16:00 01/13/25 16:00 01/13/25 16:00 01/13/25 12:00 Vitals stable Narrative Exam Alert oriented. Moves both lower extremities well she did not get up with physical therapy Objective - Ortho Labs 01/13/25 05:24 01/13/25 05:24 Labs: Laboratory Results - last 24 hr 01/13/25 05:24 WBC 6.3 RBC 4.44 Hgb 12.9 Hct 38.3 MCV 86 MCH 29.1 MCHC 33.7 RDW Std Deviation 41.1 Plt Count 163 Neut % (Auto) 56 Lymph % (Auto) 31 [place] % (Auto) 9 Eos % (Auto) 3 Baso % (Auto) 1 Neut # (Auto) 3.6 Lymph # (Auto) 2.0 [place] # (Auto) 0.6 Eos # (Auto) 0.2 Baso # (Auto) 0.0 Immature Gran # (Auto) 0.02 H Absolute Nucleated RBC 0.00 Immature Gran % 0 Nucleated RBC % 0 Sodium 141 Potassium 3.6 Chloride 106 Carbon Dioxide 26.5 Anion Gap 9 BUN 13 Creatinine 0.5 L Estim Creat Clear Calc 101.2 eGFR > 60 BUN/Creatinine Ratio 26 H Glucose 97 Calculated Osmolality 281 Calcium 8.7 Corrected Calcium 8.7 Phosphorus 3.4 Magnesium 2.0 Total Bilirubin 1.1 D AST 15 ALT < 7 L Alkaline Phosphatase 121 H D Total Protein 6.4 Albumin 4.0 Globulin 2.4 Albumin/Globulin Ratio 1.7 Hemoglobin 12.9 Assessment & Plan Assessment Additional comments: Will get her up with physical therapy weight-bear to tolerance Plan family services coordinator to help family with home posthospital care plan she may be best served with intermediate facility during acute rehab Documentation for date of: 01/13/25
[2025-01-14] VITALS (8 sets, daily range): BP systolic 114–139; BP diastolic 67–78; PULSE 63–93; RESP 16–95; TEMP 36.2–37; O2SAT 92–94; BMI 12.0
[2025-01-14 06:22] LABS: Phosphorous 3.3 mg/dL (2.4-5.1)
[2025-01-14] MEDS: HYDROcodone/APAP 5/325 TABLET 1 TAB PO (06:38)
[2025-01-14] MEDS: PANTOPRAZOLE 40 MG TABLET PO (08:42)
[2025-01-14] MEDS: HEPARIN SOD INJ 5000 UNIT/ML VIAL SC (08:42)
[2025-01-14] MEDS: NALOXEGOL OXALATE 25 MG TABLET (NON-FORMULARY) 12.5 MG PO (08:43)
[2025-01-14] MEDS: CARBIDOPA/LEVODOPA CR 50/200 TABCR 1 TAB PO (08:43)
[2025-01-14] MEDS: SENNA TABLET 1 TAB PO (08:43)
[2025-01-14] MEDS: LOSARTAN POTASSIUM 25 MG TABLET 50 MG PO (08:43)
[2025-01-14] MEDS: RIVASTIGMINE 4.6 MG/24 HR TOP (09:25)
--- NOTE | 2025-01-14 09:45 | PC.SS ---
SS spoke to p soledad Lea, who is in agreement with the pt going to short term rehab. SNF referral submitted via [email or web address]. Pending responses. Per Venu they have no preference at this time.[phone]
--- NOTE | 2025-01-14 10:34 | ESDS_ITS ---
<Statement entered by Roger Moore MD - 01/14/25 16:17> Patient was examined with the team including attending physician. Note reviewed, I agree with the discharge plan as documented. - Roger Moore MD PGY2 Disclaimer: The document may contain phonetic/typographic errors due to voice recognition software. Planned Discharge Date 01/14/25 DS: Providers Provider Date of admission: 01/11/25 03:25 Primary care physician: ROYCE Felix Admitting Provider: Cortes Najera MD Attending Provider on Admission: Selina Cristobal MD Consults: 01/10/25 23:26 Referral Physical Therapy Stat Comment: Physician Instructions: Instructions: Please try weight bearing exercise. 01/10/25 23:31 Consult to Orthopedic Stat Comment: Consulting Provider: Blas Lopez 01/11/25 14:36 Consult to General Surgery Routine Comment: Elevated Tbili, cholelith Consulting Provider: Lili Veliz 01/13/25 08:32 Referral Speech Therapy Stat Comment: Attending Provider on DC: Rich Patel MD Discharging Provider: Rich Patel MD DS: Diagnosis Problem List Completed Was Problem List Reviewed/Reconciled?: Yes Hospital Course Hospital Course Hospital course: 64-year-old female with past medical history of parkinsonism, hypertension presented to the ED on 01/11 with ground-level fall. In the ED, patient was mildly hypertensive 132/72, heart rate 97, temperature 98.1 which did increase to 101 ?F and saturating 92% on room air. Pertinent lab findings included T. bili of 3.7, lactate 1.4, urinalysis showed turbid urine with nitrite and leukocyte Estrace positive, pyuria and 3+ bacteria. Head CT was negative for acute hemorrhage, lumbar spine and cervical spine were negative however abdomen pelvis CT showed acute fractures of the 2nd and 3rd sacral segments. Patient was admitted and started on IV fluids, IV antibiotics and pain management. Orthopedist Dr Lopez was consulted regarding fractures. Orthopedic consultation recommended physical therapy and pain management but no need for surgical intervention at this time. General surgery was also consulted as the patient had elevated T bilirubin which later downtrended but alk phos up trended; there was suspicion for choledocholithiasis which had passed. General surgery assessed the patient no surgical interventions required at this time. Patient made significant progress during hospital stay and will be discharged with the following instructions. Take Tylenol OTC as directed for Pain 1-3 Please continue taking [place] 5/325 ONE tablet by mouth every 4 hours as needed for Pain 4-6 Please continue taking [place] 10/325 ONE tablet by mouth every 4 hours as needed for Pain 7-10 Follow-up with orthopedic surgeon, Dr. Lopez, within 1-2 weeks after discharge You will need outpatient online communications specialist referral to evaluate the sacral fractures. Follow-up with your PCP within 1 week of discharge Continue all other home medications as prescribed If your symptoms worsen or if you develop new shortness of breath, chest pain, severe abdominal or back pain/numbness - please come back to the ED immediately Hospital Diagnosis: #Ground-level fall #Elevated T-Bili, downtrending #UTI #Parkinson disease #Hypertension Rich Patel, PGY-1 Status at Discharge Overall status at discharge: patient is progressing back to baseline Time Spent with Patient Time attestation: Total time spent providing and/or coordinating discharge services: 45 minutes Time spent: Greater than 30 minutes Exam Vital Signs Temp Pulse Resp BP Pulse Ox O2 Del Method O2 Flow Rate 97.2 F 72 18 139/78 H 94 L Room Air 1 01/14/25 08:00 01/14/25 08:43 01/14/25 08:07 01/14/25 08:43 01/14/25 08:00 01/14/25 08:00 01/13/25 12:00 Narrative Exam Physical Exam: GENERAL: Awake, answering questions appropriately but with a stutter, appears stated age HEENT: NC/AT. Moist mucosa. PERRLA/EOMI. CARDIO: Heart RRR, no obvious murmurs, no JVD. PULM: No coughing or visible SOB. Lungs CTA B/L. GI: Abdomen soft, NT/ND, +BS. SKIN/MSK/EXT: Mild tremor noted. Slightly flexed hips and knees. No wounds/discoloration/rashes/edema/amputations. +Pedal pulses present B/L. NEURO: Oriented x3, no focal neurologic deficits noted. Discharge Plan Plan Patient Disposition: Xfer Skilled Nsg Fac (SNF) Patient condition on transfer: Stable Care Plan Goals: Take Tylenol OTC as directed for Pain 1-3 Please continue taking [place] 5/325 ONE tablet by mouth every 4 hours as needed for Pain 4-6 Please continue taking [place] 10/325 ONE tablet by mouth every 4 hours as needed for Pain 7-10 Follow-up with orthopedic surgeon, Dr. Lopez, within 1-2 weeks after discharge You will need outpatient online communications specialist referral to evaluate the sacral fractures. Follow-up with your PCP within 1 week of discharge Continue all other home medications as prescribed If your symptoms worsen or if you develop new shortness of breath, chest pain, severe abdominal or back pain/numbness - please come back to the ED immediately Prescriptions/Referrals Prescriptions/Med Rec: Continued Losartan Potassium * (COZAAR *) 50 MG tablet 50 mg PO QDAY Qty: 30 No Action oxybutynin chloride 5 mg tablet 5 mg PO DAILY Patient Comments: TAKE 1 TABLET BY MOUTH EVERY DAY rivastigmine 4.6 mg/24 hour patch 24 hour 4.6 mg TOPICAL QDAY Patient Comments: USE DAILY DIRECTED carbidopa-levodopa 50-200 mg tablet extended release 1 tab PO BID Patient Comments: TAKE 1 TABLET BY MOUTH TWICE A DAY acetaminophen 650 mg tablet extended release PO Patient Comments: TAKE 1 TABLET BY MOUTH THREE TIMES A DAY NEEDED FOR PAIN Referrals: Doris Garrido FNP [Primary Care Provider] - Blas Lopez MD [Physician] - Patient/Caregiver Discharge Instructions Discharge Activity: activity as tolerated Education Materials: Back Safety Bed, Back Safety: Bending, Back Safety: Lifting Print Language: Portuguese Stand Alone Forms: [employer] Award Info., Patient Portal Info Letter Discharge Order Discharge Orders: Discharge (Routine); Ordered 01/14/25 Ordered By: Roger Moore Quality Discharge Quality Measures VTE prophylaxis
--- NOTE | 2025-01-14 11:25 | PC.SS ---
SS spoke to Son Venu and provided DC options for SNF ([facility], [facility], [facility], and [facility]), per Venu he will speak to his and have an answer by 1300
--- NOTE | 2025-01-14 12:05 | PC.SS ---
Addendum entered by Nissa Hood 01/14/25 15:51: ETA set for pt to DC to [facility] at 1600. S updated sister Anushka and pt at bedside Original Note: SS received a call from Noelle ESCALANTE that pt family decided on [facility] for Disposition. SS updated Susy at [facility].
--- NOTE | 2025-01-14 14:49 | PC.NURSE ---
gave report to Natalie at [facility]
== END 2025-01-14 16:15 | disposition skilled nursing facility (03) | DRG 552 ==
LOC: SERX 01-11 03:30 → SERHOLD 01-11 04:07 → S3SX 01-11 09:22
PROVIDERS: Internal Medicine; Admitting Provider Student in an Organized Health Care Education/Training Program; Emergency Provider Student in an Organized Health Care Education/Training Program; PCP Nurse Practitioner Family; Visit Provider Internal Medicine
DX: S32.19XA Other fracture of sacrum, initial encounter for closed fracture (principal); N39.0 Urinary tract infection, site not specified; G20.A1 Parkinson's disease without dyskinesia, without mention of fluctuations; I10 Essential (primary) hypertension; K80.20 Calculus of gallbladder without cholecystitis without obstruction; W18.30XA Fall on same level, unspecified, initial encounter; E11.9 Type 2 diabetes mellitus without complications; Y92.002 Bathroom of unspecified non-institutional (private) residence as the place of occurrence of the external cause; K62.89 Other specified diseases of anus and rectum; Z79.84 Long term (current) use of oral hypoglycemic drugs; Z79.899 Other long term (current) drug therapy; Z87.891 Personal history of nicotine dependence; T17.928A Food in respiratory tract, part unspecified causing other injury, initial encounter; W44.F3XA Food entering into or through a natural orifice, initial encounter
CPT/HCPCS: 36415; 70450; 71045; 72125; 72131; 74176; 74177; 76705; 80053; 81001; 82550; 83605; 83615; 83735; 84100; 84145; 84484; 85025; 85610; 85730; 87040; 87086; 87811; 92526; 92610; 93005; 94667; 96365; 96366; 96372; 96374; 97162; 99285; A4649; J0696; J1644; J2270; J3475; J3490; J7040; Q9967; A9270

== ENCOUNTER 2025-01-22 13:52 | Outpatient (AMB) | payer MEDICARE, MEDICAID, SELFPAY ==
--- NOTE | 2025-01-22 14:07 | PD.GSCLVISIT ---
Vital Signs - [facility] 01/22/25 14:08 Height 1.65 m Height Method Stated Weight 56.245 kg Weight Measurement Method Estimated by Patient BMI 20.6 BP 102/70 Blood Pressure Source Automatic Cuff Blood Pressure Location Left Upper Arm Position Sitting Respiration 18 Pulse 93 Pulse Source Monitor Temp 97.3 F Temp Source Temporal Artery Scan Pulse Oximetry (%) 94 L Oxygen Delivery Method Room Air Med/Allergies Allergies & Medications Allergies No Known Allergies Allergy (Verified 01/22/25 14:12) Medication Reconciliation Losartan Potassium * (COZAAR *) 50 mg PO QDAY ##30 02/26/15 [History Confirmed 01/22/25] acetaminophen 650 mg tablet,extended release mg PO 01/14/25 [History Confirmed 01/22/25] carbidopa ER 50 mg-levodopa 200 mg tablet,extended release 1 tab PO BID 01/14/25 [History Confirmed 01/22/25] oxybutynin chloride 5 mg tablet 5 mg PO DAILY 01/14/25 [History Confirmed 01/22/25] rivastigmine 4.6 mg/24 hour transdermal patch 4.6 mg topical QDAY 01/14/25 [History Confirmed 01/22/25] MA Intake Visit Data Collection New Patient or Established: Established Patient (seen at [facility] within 3 years) Seen by Clinical Staff ONLY (RN/MA): No Reason for Visit:: GALLSTONES Pain Present Currently: No PCP or OBGYN visit in last 3 months: Yes Hx Now: No Do You Feel Safe at Home: Yes Authorities Contacted: N/A Smoking Status Smoking Status: Former smoker Immunization / Flu Flu Vaccine in the Last 12 Months: No Flu Vaccine Exclusion Criteria: No Exclusion Criteria Past Medical History Past Medical History NEUROLOGIC: Positive Alzheimer's Disease and Parkinson's Disease; Negative Neurological Disorders, Cerebrovascular Accident, Transient Ischemic Attacks (TIA), Dementia, Brain Tumor, Meningitis, Seizures, Epilepsy, Multiple Sclerosis, Cerebral Palsy, Amyotrophic Lateral Sclerosis (ALS/Michelle Gehrig's), Spina Bifida, Paralysis, Peripheral Neuropathy, Cole's Palsy, Subdural Hematoma, Migraine, Head Trauma, Spinal Cord Injury or Traumatic Brain Injury CARDIAC: Positive Hypertension; Negative Cardiac Disorders, Myocardial Infarction, Cardiac Arrhythmia, Atrial Fibrillation, Angina, Heart Murmur, Coronary Artery Disease, Peripheral Vascular Disease, Aneurysm, Congestive Heart Failure, Congenital Heart Disease, Valvular Heart Disease, Rheumatic Fever, Cardiomyopathy, Edema, Pericarditis, Cellulitis, Deep Vein Thrombosis, Hypotension or Varicose Veins RESPIRATORY: Negative Chronic Obstructive Pulmonary Disease (COPD), Asthma, Bronchitis, Emphysema, Pulmonary Fibrosis, Cystic Fibrosis, Tuberculosis, Pulmonary Embolism, Pulmonary Edema or Sleep Apnea GASTROINTESTINAL: Negative Hepatitis or Colorectal Cancer GENITOURINARY: Negative Renal Disease REPRODUCTIVE: Negative Breast Cancer, Endometriosis, Genital Herpes, Gonorrhea, Pelvic Inflammatory Disease, Previous Pregnancies, Syphilis or Uterine Prolapse MUSCULOSKELETAL: Negative Muscular Dystrophy, Myasthenia Gravis, Marfan's Syndrome, Bone Cancer, Arthritis, Rheumatoid Arthritis, Osteoporosis, Degenerative Disk Disease, Gout, Scoliosis, Carpal Tunnel Syndrome, Fibromyalgia, Fractures, Degenerative Joint Disease, Osteomyelitis or Poliovirus ENT: Negative Cataracts or Head Trauma ENDOCRINE: Negative Endocrine Disorders, Diabetes Mellitus Type 1 or Diabetes Mellitus Type 2 HEMATOLOGIC: Negative Sickle Cell Disease PSYCHO/SOCIAL: Negative Psychiatric Problems, Schizophrenia, Recreational Drug Use, Bipolar Disorder, Depression, Anxiety, Behavior Problems, Self-Mutilation, Attention Deficit Disorder, Attention Deficit Hyperactivity Disorder, Depression, Post Traumatic Stress Disorder or Eating Disorder OTHER HISTORY: Positive Hospitalization and Falls; Negative Down Syndrome, Autism, Developmental Delay, Shingles, Blood Transfusions, Blood Transfusion Reaction, Anesthesia Reactions, Organ Transplant, Chemotherapy, Radiation Therapy, Hyperbaric Therapy, MRSA, VRSA, Vancomycin-Resistant Enterococci, Human Immunodeficiency Virus (HIV), Chicken Pox, Measles, Mumps, Rubella (Mongolian Measles), Pertussis, Clostridium Difficile, Cancer, Breast Cancer, Cervical Cancer, Colorectal Cancer, Lung Cancer or Ovarian Cancer Family History FAMILY HISTORY: Negative Family Psychiatric Problems, Family Respiratory Disorders, Family Cardiac Disorders, Family Gastrointestinal Problems, Family Cancer, Family Surgery or Family Anesthesia Reaction Surgical History SURGICAL: Negative Cardiac Surgery, Open Heart Surgery, Coronary Artery Bypass Graft, Valve Replacement, Vascular Surgery, Coronary Stent, Cardiac Catheterization, Pacemaker, Angiogram, Auto Implanted Cardiovert Defib, Carotid Endarterectomy, Endocrine Surgery, Thyroidectomy, Ear Surgery, Tympanostomy Tube, Eye Surgery, Nose Surgery, Oral Surgery, Tonsillectomy, Adenoidectomy, Cochlear Implant, Corneal Transplant, Throat Surgery, Abdominal Surgery, Tracheostomy, Gastric Bypass Surgery, Gastrostomy, Bowel Surgery, Nephrectomy, Joint Replacement, Amputation, Open Reduction Internal Fixation, Arthroscopy, Neurologic Surgery, Brain Shunt, Lumpectomy, Hysterectomy, Tubal Ligation, Section or Organ Transplant Social History SMOKING STATUS: Smoking status: Former smoker LIVES WITH: Lives With: Family HPI HPI Narrative 64F with Parkinson's, recently admitted to [facility] with a sacral fracture, found to have hyperbilirubinemia during hospitalization for which reason a gallbladder US was ordered showing gallstones, normal CBD and no signs of cholecystitis. At the time pt denied ever having epigastric/RUQ pain, she was eating well without any symptoms and her bilirubin normalized by time of discharge. Pt was referred for outpatient follow up. Today her speech is not as clear as it was in the hospital but she does confirm that she has never had symptoms related to gallstones. I reached out to the contact phone # in her chart provided for her sister/son, for more information but they were not available and the mailbox was full precluding voicemail ROS Review of Systems Systems Reviewed: All systems reviewed, normal except as documented Objective/Exam General General Appearance: alert, cooperative and well groomed Resp Respiratory exam: Absent respiratory distress Abdominal Abdominal exam: Present soft; Absent distention or tenderness Assessment & Plan Diagnosis / Problem List (1) Asymptomatic gallstones: Status: Acute Assessment & Plan: 64F with Parkinson's, recently admitted to [facility] with a sacral fracture, found to have hyperbilirubinemia prompting workup which showed gallstones. As pt has never had symptoms related to gallstones I would not proceed with this elective surgery as it would not be expected to confer any benefit. I wrote a note to [facility] to this effect and they are encouraged to reach out if symptoms develop Office Procedures GNS Level of Care Nursing/Assessment Patient Status: Established Patient Nursing Assessment/Reassesment: Medication Reconciliation, Update PMH in EMR and Vital Signs Coordination of Care: Complex Care and Chronic Disease 1-5, Consent,records obtained, informed consent, Education Simp Pt/Fam, Results/Orders obtained and Staff clarify orders Established Patient Charge Established Patient Point Assignment: 90 Established Patient Point Charge: EP Level 3 (80-115) Patient Portal Questionaires Social History Tobacco History Smoking Status: Former smoker Domestic Abuse History Do You Feel Safe at Home: Yes Review of Systems Report any current symptoms Only answer those that you have currently: Past Medical History Past Medical History Have you ever been diagnosed with any of the following: Neurological Problems Cerebrovascular Accident (CVA): No Transient Ischemic Attacks (TIA): No Dementia: No Alzheimer's Disease: Yes Parkinson's Disease: Yes Brain Tumor: No Meningitis: No Seizures: No Epilepsy: No Multiple Sclerosis: No Cerebral Palsy: No Amyotrophic Lateral Sclerosis (ALS/Michelle Gehrig's): No Spina Bifida: No Paralysis: No Peripheral Neuropathy: No Cole's Palsy: No Subdural Hematoma: No Migraine: No Head Trauma: No Spinal Cord Injury: No Traumatic Brain Injury: No Cardiology Problems Myocardial Infarction: No Cardiac Arrhythmia: No Atrial Fibrillation: No Angina: No Heart Murmur: No Coronary Artery Disease: No Peripheral Vascular Disease: No Aneurysm: No Congestive Heart Failure: No Congenital Heart Disease: No Valvular Heart Disease: No Rheumatic Fever: No Cardiomyopathy: No Edema: No Pericarditis: No Cellulitis: No Deep Vein Thrombosis: No Hypertension: Yes Hypotension: No Varicose Veins: No Respiratory Problems Chronic Obstructive Pulmonary Disease (COPD): No Asthma: No Bronchitis: No Emphysema: No Pulmonary Fibrosis: No Tuberculosis: No Pulmonary Embolism: No Pulmonary Edema: No Sleep Apnea: No Stomache/Intestinal Problems Hepatitis: No Colorectal Cancer: No Genital/Urinary Problems Renal Disease: No Reproductive Problems Breast Cancer: No Endometriosis: No Genital Herpes: No Gonorrhea: No Pelvic Inflammatory Disease: No Previous Pregnancies: No Syphilis: No Uterine Prolapse: No Musculoskeletal Problems Muscular Dystrophy: No Myasthenia Gravis: No Marfan's Syndrome: No Bone Cancer: No Arthritis: No Rheumatoid Arthritis: No Osteoporosis: No Degenerative Disk Disease: No Gout: No Scoliosis: No Carpal Tunnel Syndrome: No Fibromyalgia: No Fractures: No Degenerative Joint Disease: No Osteomyelitis: No Poliovirus: No Head,Eye,Nose,Throat Problems Cataracts: No Endocrine Problems Diabetes Mellitus Type 1: No Diabetes Mellitus Type 2: No Blood Problems Sickle Cell Disease: No Psychologic Problems Schizophrenia: No Recreational Drug Use: No Bipolar Disorder: No Depression: No Anxiety: No Behavior Problems: No Self-Mutilation: No Attention Deficit Disorder: No Attention Deficit Hyperactivity Disorder: No Depression: No Post Traumatic Stress Disorder: No Eating Disorder: No Other Problems Hospitalization: Yes Down Syndrome: No Autism: No Developmental Delay: No Shingles: No Falls: Yes Blood Transfusions: No Blood Transfusion Reaction: No Anesthesia Reactions: No Organ Transplant: No Chemotherapy: No Radiation Therapy: No Hyperbaric Therapy: No MRSA: No VRSA: No Vancomycin-Resistant Enterococci: No Human Immunodeficiency Virus (HIV): No Chicken Pox: No Measles: No Mumps: No Rubella (Mongolian Measles): No Pertussis: No Clostridium Difficile: No Cancer: No Cervical Cancer: No Lung Cancer: No Ovarian Cancer: No Surgical History Carotid Endarterectomy: No Coronary Artery Bypass Graft: No Valve Replacement: No Hysterectomy: No Pacemaker: No Thyroidectomy: No
[2025-01-22 14:08] VITALS: BP 102/70; PULSE 93; RESP 18; TEMP 36.3; O2SAT 94; BMI 20.6
== END 2025-01-22 14:19 | disposition home or self-care (01) ==
LOC: HODSRG 13:52
PROVIDERS: PCP Nurse Practitioner Family; Referring Provider Nurse Practitioner Family; Supervising Provider Surgery; Visit Provider Surgery
DX: K80.20 Calculus of gallbladder without cholecystitis without obstruction (principal)
CPT/HCPCS: 99213; G0463

== ENCOUNTER → 2025-01-31 | Outpatient (CLI) | payer MEDICARE, MEDICAID, SELFPAY ==
[2025-01-31 21:04] LABS: Collection Type, Urine Catheter; Squamous Epithelial Cell,Urine 0 /hpf (0-5)
[2025-01-31 21:32] LABS: Bilirubin,Urine Negative (Negative); Blood,Urine 3+ (Negative); Color,Urine Orange (Lt Yel-Yel); Glucose, Urine Negative (Negative); Ketones,Urine Negative (Negative); Leukocyte Esterase,Urine Positive (Negative); Nitrite,Urine Negative (Negative); Protein,Urine 2+ (Neg - Trace); RBC,Urine 2343 /hpf (0-3); Specific Gravity,Urine 1.024 (1.001-1.035); Urobilinogen,Urine Negative mg/dL (0.0-1.0); WBC,Urine 2693 /hpf (0-5)
[2025-01-31 21:33] LABS: Clarity,Urine Turbid (Clear/Hazy); Culture Indicated,Urine Yes
== END | disposition home or self-care (01) ==
LOC: SLAB 02-17 11:26
PROVIDERS: PCP Hospitalist; Referring Provider Hospitalist; Visit Provider Hospitalist
DX: R82.998 Other abnormal findings in urine (principal)
CPT/HCPCS: 81001; 87077; 87086; 87186